=== PATIENT | male | born 1980 | race African-American/Black ===

== ENCOUNTER 2016-10-17 20:57 | Emergency (ER) | payer OTHER ==
[~2016-10-17] VITALS: Ht 172.7 cm; Wt 118.8 kg
[~2016-10-17 20:57] MED LIST: CANA1TAB PO; DICY20TA3 PO; LISI-334 PO; Metoprolol Tartrate PO; ONDA4TAB10 PO; PROM50SU6 RC
[2016-10-17] MEDS ORDERED: ONDANSETRON ODT 4 MG TAB.RAPDIS ONE (21:22)
--- NOTE | 2016-10-17 21:36 | PHYS DOC ---
General Chief Complaint: ABDOMINAL PAIN Stated Complaint: ABDOMINAL PAIN X 2 DAYS,N/V,BLOOD SUGAR Time Seen by MD: 21:31 Source: patient Problems: History of Present Illness Initial Comments Patient with abdominal pain and vomiting. Patient says it started 3 days ago. It was intermittent but now more constant. He did see his own doctor for this yesterday. He doesn't know what he was told but did get new prescriptions filled. He doesn't know what prescriptions these were. He says his pain and vomiting discontinued. He says he had pain like this previously before with episodes of diabetes as well as pancreatitis. He says he is felt hot and cold but has had no fever or chills. There is no runny nose or sore throat. There is no chest pain or shortness of breath. He does have significant nausea vomiting, multiple times today. He's had 3 episodes this evening he thought he might of seeing some spots of blood. He has abdominal pain which is severe and located from the suprapubic area up towards the epigastric region. There is no back pain. There is no change in bowel or bladder habits. He's had some slight constipation but is having small bowel movements daily. Patient states his feet felt cold lately but there is no other acute focal extremity or neurologic complaints. Other than using medication at home he is given by his doctor, of which she doesn't know the name, there's been nothing done for this at home and he notes no factors that increase or decrease his symptoms. Patient's past medical history is remarkable for diabetes and pancreatitis. He does check her sugar regularly at home. It was in the 100s today. He smokes a half-pack of cigarettes daily. He states his occasional user of ethanol, 2 beers every other day or so. He does admit copious marijuana use which she says he uses for chronic pain. Allergies: Coded Allergies: No Known Drug Allergies (Unverified , 06/08/15) Past Medical History Medical History: diabetes, pancreatitis, other Surgical History: no surgical history Family History Significant Family History: no pertinent family hx Social History Smoker: less than 1 pack/day Alcohol: occasionally Drugs: marijuana Review of Systems All Other Systems: Reviewed and Negative Physical Exam General Appearance: WD/WN, moderate distress Ear, Nose, Throat: normal ENT inspection Neck: full range of motion, supple, normal inspection Respiratory: lungs clear, normal breath sounds, no respiratory distress Cardiovascular: regular rate, rhythm, no edema Gastrointestinal: soft, no organomegaly, tenderness Back: no vertebral tenderness Extremities: non-tender, normal inspection, no pedal edema Neurologic/Psychiatric: alert, normal mood/affect, oriented x 3 Skin: normal color Lymphatic: no adenopathy Comments Generally this a well-developed well-nourished white male who does look to be in mild to moderate discomfort with active vomiting and pain. Vitals are as noted. Pertinent signs on physical exam shows ears and throat to be clear. Neck is supple without adenopathy or JVD. Chest is clear and cardiovascular exam is unremarkable. The abdomen is soft. He is diffusely moderately tender throughout. There is no masses or organomegaly or peritoneal findings. No localizing findings. Back shows no CVA tenderness. Externally show noticeable rashes cyanosis or edema. Patient is with active, awake, and alert. He is oriented and cooperative. He is diaphoretic. Remainder of physical exam is clinically unremarkable. Orders, Labs, Meds Old charts note prior ER visits for chest wall pain, dental pain with nausea and vomiting, dental pain, right eye injury, gastroenteritis. He was admitted twice in 2013 for pancreatitis with alcohol abuse. EKG shows sinus at 110. Normal axis. No acute ST or T-wave changes. Labs show a stable white count. Amylase and lipase are within normal limits. Creatinine is mildly elevated at 1.7. He is acetone positive. CT scan of the abdomen and pelvis shows mild inflammation consistent with acute pancreatitis as well as fatty infiltration of liver. There is no other acute changes per radiology. 2400 Patient resting comfortably in the ED. He says he feels much better at this time. He is able tolerate by mouth fluids without difficulty, and he certainly looks much more comfortable as well. I discussed with the patient most likely diagnosis mild pancreatitis. I think he was somewhat dehydrated and ketotic as well. Fortunately his blood sugar looks good and his potassium and electrolytes are stable. I discussed with him management options at this time. I indicated he felt well enough, we could try to handle this home and is able tolerate by mouth fluids. We've given him some antiemetics and appropriate pain medication. Alternately, if he felt unwell, we could certainly admit him to the hospital for further evaluation and care including pain medicines, antiemetics, and IV fluids. Patient says he is feeling much better and wants to try to handle this home. He is able tolerate by mouth fluids, looks improved, and I think this is a reasonable decision on his part. Go ahead and write prescriptions for Zofran and Lortab accordingly. We discussed home care including rest, increasing fluids, and use of medications as directed. He voices understanding of the need to follow-up with primary care or return to the ER immediately as needed if worsen anyway, especially for persistent vomiting, at which point we can admit him for IV fluids to prevent dehydration. He says he has a ride home with his brother. He looks much improved, in no acute discomfort distress, able tolerate by mouth fluids, and okay for discharge home at this time. RAJAT FELIX MD Oct 17, 2016 21:36
[2016-10-17] MEDS ORDERED: PROMETHAZINE 12.5 MG in IV NORMAL SALINE 50ML 50 ML IV PRN (21:45)
[2016-10-17 21:50] LABS: BASO # 0.1 x10^3/uL (0.0-0.2); BASO % 1 % (0-3); EOS # 0.3 x10^3/uL (0.0-0.7); EOS % 2 % (0-3); HEMATOCRIT 51.7 % (39.0-53.0); HEMOGLOBIN 17.4 g/dL (13.0-17.5); LYMPH # 2.2 x10^3/uL (1.0-4.8); LYMPH % 20 % (24-48); MEAN CORPUSCULAR HEMOGLOBIN 29 pg (25-35); MEAN CORPUSCULAR HGB CONC 34 g/dL (31-37); MEAN CORPUSCULAR VOLUME 87 fL (79-100); MONO % 9 % (0-9); NEUT # 7.8 x10^3uL (1.8-7.7); NEUT % 68 % (31-73); PLATELET COUNT 262 x10^3/uL (140-400); RED BLOOD COUNT 5.96 x10^6/uL (4.30-5.70); RED CELL DISTRIBUTION WIDTH 14.8 % (11.5-14.5); WHITE BLOOD COUNT 11.5 x10^3/uL (4.0-11.0)
[2016-10-17 21:57] LABS: ALBUMIN 3.7 g/dL (3.4-5.0); ALBUMIN/GLOBULIN RATIO 0.7 (1.0-1.7); CALCIUM 9.6 mg/dL (8.5-10.1); CREATININE 1.7 mg/dL (0.7-1.3); GFR 55.5; POTASSIUM 4.3 mmol/L (3.5-5.1); TOTAL BILIRUBIN 0.6 mg/dL (0.2-1.0); TOTAL PROTEIN 8.7 g/dL (6.4-8.2)
[2016-10-17] MEDS ORDERED: FENTANYL PF 100 MCG/2 ML VIAL. IV ONE (22:00)
[2016-10-17] MEDS ORDERED: IV NORMAL SALINE 1,000ML 1,000 ML IV ONE (22:00)
[2016-10-17] MEDS ORDERED: ONDANSETRON ODT 4 MG TAB.RAPDIS PO ONE (22:15)
--- NOTE | 2016-10-17 22:20 | RAD ---
PROCEDURE CT abdomen pelvis without contrast. HISTORY Vomiting, abdominal pain x3 days. History of pancreatitis. TECHNIQUE Helical CT imaging of the abdomen and pelvis is performed without IV or oral contrast. PQRS: One or more the following individualized dose reduction techniques were utilized for the study: 1. Automated exposure control. 2. Adjustment of the mA and/or kV according to patient size. 3. Use of iterative reconstruction technique. COMPARISON CT abdomen pelvis with contrast June 25, 2016. FINDINGS Evaluation of solid organs and bowel is limited without oral and IV contrast, decreasing sensitivity for detection of pathology. Due to respiratory motion artifact, portion of the CT scan is repeated. No obvious opacity of the lungs. Cardiac size normal. There is fatty infiltration of the liver. Small cyst along the gallbladder fossa, stable. Gallbladder, spleen, adrenal glands, kidneys, and abdominal aorta are normal. Pancreas body and tail are normal. There is mild induration adjacent to the pancreas head, for example image 19 and image 15 of series 3. No evidence of pancreas pseudocyst or necrosis. Stomach unremarkable. Small fat containing umbilical hernia. No dilated small bowel. The appendix is normal. No colon wall thickening. Urinary bladder is normal. Prostate size normal. No pelvic free fluid. No acute bone abnormality. IMPRESSION 1. Mild inflammation near the pancreas head compatible with acute pancreatitis. Suggest correlation with lipase. 2. Fatty infiltration of the liver. Electronically signed by: Andrzej Gutierrez MD (Oct 17, 2016 22:18:35)
--- NOTE | 2016-10-17 22:29 | EKG ---
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
[2016-10-18 00:09] VITALS: BP 140/87
[2016-10-18 00:13] LABS: BILIRUBIN,URINE NEG (NEG); CLARITY,URINE CLEAR; COLOR,URINE YELLOW; GLUCOSE,URINE 500 mg/dL (NEG); NITRITE,URINE NEG (NEG); RBC,URINE 0 /HPF (0-2); UROBILINOGEN,URINE 0.2 mg/dL (0.2 mg/dL)
[2016-10-18 00:14] LABS: BACTERIA,URINE 0 /HPF (0-FEW); SQUAMOUS EPITHELIAL CELL,UR FEW /LPF; WBC,URINE OCC /HPF (0-4)
== END 2016-10-18 00:12 | disposition home or self-care (01) ==
LOC: ER 20:57
DX: R10.13 Epigastric pain (principal); R11.2 Nausea with vomiting, unspecified; E11.9 Type 2 diabetes mellitus without complications; F17.210 Nicotine dependence, cigarettes, uncomplicated; F12.10 Cannabis abuse, uncomplicated
CPT/HCPCS: 36415; 74176; 80053; 81001; 82010; 82140; 82150; 82947; 83605; 83690; 85027; 93005; 96365; 96366; 96375; 99285; J2550; J3010; Q0162; J7030

== ENCOUNTER 2016-10-18 04:23 | Observation (INO) | payer OTHER ==
[~2016-10-18] VITALS: Ht 170.2 cm; Wt 108.0 kg
--- NOTE | 2016-10-18 04:41 | PHYS DOC ---
General Chief Complaint: NAUSEA/VOMITING/DIARRHEA Stated Complaint: VOMITING,ABDOMINAL PAIN Time Seen by MD: 04:34 Source: patient Problems: History of Present Illness Initial Comments Patient here for his second visit samia for abdominal pain nausea vomiting. Patient was seen earlier this evening by this physician diagnosed with acute pancreatitis. He does have a history of pancreatitis as well as diabetes. Actually did much better in the ER following pain medicine and antiemetics. He was able tolerate by mouth fluids, said he felt better, wanted to try to handle this home. He was discharged home with prescriptions for Lortab and for Zofran. However, he said that he went to sleep, and several hours later woke up with recurrent abdominal pain and vomiting, and presented again back to the emergency department for care. Patient states since his workup is and had recurrence of his diffuse abdominal pain. He's had 2 episodes of emesis with questionable blood flecks in one of the episodes. He's felt hot and cold with some chills and sweats. There is no runny nose or sore throat. There's no chest pain or shortness of breath. He has abdominal pain nausea vomiting as described. There is no change amount or bladder habits. There is no focal extremity or neurologic complaints. Other than present for care previous to leave this evening there's been nothing done for this at home and no fractures noted increase or decrease any symptoms he might have. Patient's past medical history is remarkable for diabetes. He is on metformin. He also has problems with anxiety depression and takes Zoloft. He has a history of pancreatitis as well. He smokes a half-pack per per day of cigarettes. He's been occasional social user of ethanol. Allergies: Coded Allergies: No Known Drug Allergies (Unverified , 06/08/15) Past Medical History Medical History: diabetes, pancreatitis, other Surgical History: no surgical history Family History Significant Family History: no pertinent family hx Social History Smoker: less than 1 pack/day Alcohol: occasionally Review of Systems All Other Systems: Reviewed and Negative Physical Exam General Appearance: WD/WN, mild distress Neck: full range of motion, supple, normal inspection Respiratory: lungs clear, normal breath sounds, no respiratory distress Cardiovascular: regular rate, rhythm, no edema Gastrointestinal: soft, tenderness Back: no CVA tenderness, no vertebral tenderness Extremities: non-tender, normal inspection, no pedal edema Neurologic/Psychiatric: alert, normal mood/affect, oriented x 3 Skin: normal color Lymphatic: no adenopathy Comments Generally this is a well-developed well-nourished black male who looks mildly uncomfortable, but not as severe as when previously seen this evening. Vitals are as noted. He has a small amount of emesis in the pale. Pertinent findings on physical exam shows the chest to be clear. Cardiovascular exam shows regular rate and rhythm without murmur. The abdomen is soft. He is diffusely tender. There is no masses, organomegaly, or peritoneal findings, or focal findings. Back shows no CVA tenderness. Extremities show no rashes cyanosis or edema. He is mildly diaphoretic. He is awake alert oriented and cooperative with exam. Remainder of physical exam is clinically unremarkable. Orders, Labs, Meds Old charts note that the patient was seen here earlier tonight as previously described, with care rendered by this physician as noted. He's also been seen in the past for gastroenteritis, with hospital admissions in the past for pancreatitis and alcohol use. EKG from earlier today showed no acute changes. Labs from earlier today show mildly elevated creatinine 1.7. He was acetone positive. Glucose was stable. Amylase and lipase were unremarkable. CT scan of the abdomen and pelvis from earlier showed evidence of mild acute pancreatitis per radiology. Patient was identified on arrival is required admission for intractable nausea vomiting. He is already had a complete workup earlier this evening. He apparently has failed outpatient treatment and the second presentation tonight will require admission. I discussed the case with Dr. Worthy of the hospitalist service who graciously agrees to accept the patient for admission. Patient is agreeable to admission as well. I will complete initial holding orders including use of antiemetics, pain medicine, an IV fluids. We will treat him here as well as some medicine for pain as well as Phenergan for nausea and vomiting. He is currently awaiting transfer to floor and hospitalist care. RAJAT FELIX MD Oct 18, 2016 04:40
[2016-10-18] MEDS ORDERED: PROMETHAZINE 12.5 MG in IV NORMAL SALINE 50ML 50 ML IV PRN ×2 (04:45→08:00)
[2016-10-18] MEDS ORDERED: PROMETHAZINE 25 MG/ML VIAL IV ONE (04:52)
[2016-10-18] MEDS ORDERED: IV NORMAL SALINE 50ML 50 ML ONE (04:52)
[2016-10-18] MEDS ORDERED: FENTANYL PF 100 MCG/2 ML VIAL. IV ONE (05:00)
[2016-10-18] MEDS ORDERED: IV NORMAL SALINE 1,000ML 1,000 ML IV ONE (05:00)
[2016-10-18 06:14] VITALS: BP 119/82
[2016-10-18 06:17] VITALS: BP 119/82
[2016-10-18] MEDS ORDERED: IV NORMAL SALINE 1,000ML 1,000 ML IV SCH (07:45)
[2016-10-18] MEDS ORDERED: ONDANSETRON PF 4 MG/2 ML VIAL. IV PRN (07:45)
[2016-10-18] MEDS ORDERED: FENTANYL PF 100 MCG/2 ML VIAL. IV PRN (08:15)
[2016-10-18 08:49] LABS: ALBUMIN 3.2 g/dL (3.4-5.0); ALBUMIN/GLOBULIN RATIO 0.7 (1.0-1.7); CALCIUM 8.3 mg/dL (8.5-10.1); CREATININE 1.3 mg/dL (0.7-1.3); GFR 75.6; POTASSIUM 4.3 mmol/L (3.5-5.1); TOTAL BILIRUBIN 0.5 mg/dL (0.2-1.0); TOTAL PROTEIN 7.6 g/dL (6.4-8.2)
[2016-10-18 10:47] VITALS: BP 137/91
[2016-10-18] MEDS ORDERED: ONDANSETRON ODT 4 MG TAB.RAPDIS PO PRN (12:45)
[2016-10-18] MEDS ORDERED: PROMETHAZINE 25 MG SUPP.RECT. PR PRN (13:00)
[2016-10-18] MEDS ORDERED: DICYCLOMINE HCL 20 MG TABLET PO SCH (13:00)
--- NOTE | 2016-10-18 13:36 | SSS ---
ADMIT DATE: 10/18/2016 HISTORY OF PRESENT ILLNESS: The patient is a 36-year-old -[place] male patient, who apparently was evaluated yesterday in the Emergency Room for abdominal pain as well as vomiting that has been just started about 3 days ago, intermittent, but now more constant. He did see his own doctor the day before yesterday. As his pain and vomiting just continued, he came to the Emergency Room and apparently was admitted before with diabetes and pancreatitis and was evaluated in the Emergency Room and apparently a decision was made initially to discharge him home, was given a prescription for pain medication. Currently, the patient came back again complaining of nausea and vomiting and therefore he was admitted, kept n.p.o., started on IV fluid to follow his labs. While in the Emergency Room his lab work showed that his white cell count slightly high. He is dehydrated with hemoglobin 17, hematocrit 51, platelet count 262,000. His chemistry showed that he was also slightly hyponatremic and dehydrated with a creatinine of 1.7, although his serum amylase and lipase were both normal. PAST MEDICAL HISTORY: Significant for hypertension, type 2 diabetes and history of pancreatitis. PAST SURGICAL HISTORY: Unremarkable. ALLERGIES: He has known drug allergies. MEDICATIONS: He is currently on following medications: He is on Invokana 50/500 one tablet daily. He is on dicyclomine 20 mg once a day, lisinopril 20 mg once a day, ondansetron 4 mg every 6 hours as needed and promethazine for Phenergan 50 mg every 6 hours. FAMILY HISTORY: He has one brother, who is known to have diabetes. His mother is alive at the age of 54 and is known to have diabetes and hypertension. He does not know his biological father. SOCIAL HISTORY: He is , has 4 children, 2 sons and 2 daughters. He smokes 4 or 5 cigarettes per day. He drinks 2 to 3 cans of beer twice a week. He smokes marijuana and in fact . He is currently student and goes to school. REVIEW OF SYSTEMS: As per history of present illness. PHYSICAL EXAMINATION GENERAL: When I examined him, he looked well and was clearly in no apparent respiratory distress, pale, but no jaundice, cyanosis, or thyromegaly. No jugular venous distention. No limb edema. VITAL SIGNS: His heart rate was 100, blood pressure was 137/91, temperature was 97.7, respiratory rate 20, and oxygen saturation was 98%. HEAD, EYES, EARS, NOSE AND THROAT: Showed normocephalic, atraumatic. NECK: Supple. HEART: Showed normal first and second heart sounds. No gallop, rub or murmur. CHEST: Clear to auscultation. No crepitation or rhonchi. ABDOMEN: Distended, soft, nontender. No guarding or rigidity. No organomegaly. All hernial orifices intact. Bowel sounds normal. NEUROLOGIC: He is awake, alert, responding appropriately. His cranial nerves intact. He moves extremities without difficulty. LABORATORY DATA: His lab work this morning showed that the serum sodium was 131, potassium 4.3, chloride 99, bicarbonate 16, anion gap of 16, BUN of 16, creatinine 1.3, estimated GFR was 75 mL per minute. His glucose was 172, calcium was 8.3. Total bilirubin, AST, ALT, alkaline phosphatase were normal. His ammonia was only 16. Lactic acid was 1.7. Total protein was 7.6, albumin was 3.2. Amylase and lipase were normal. His white cell count was 11,500, hemoglobin 17, hematocrit 51, MCV 87 and platelet count 262,000. ASSESSMENT AND PLAN: The patient has had no further episodes of nausea, vomiting. He is tolerating his diet and expressed desire to go home. He was discharged back to continue on all his medications including Invokana 50/500 one tablet once a day, dicyclomine 20 mg once a day, lisinopril 20 mg once a day, ondansetron 4 mg every 6 hours and promethazine 50 mg every 6 hours. FINAL DISCHARGE DIAGNOSES: 1.Intractable nausea and vomiting, resolved. 2.Chronic pancreatitis, stable. 3.Type 2 diabetes. 4.Hypertension. BROOKE SAHU MD DR: PERLA/familia JOB#: [id number] / [id number]
[2016-10-19] MEDS ORDERED: METFORMIN HCL PO SCH (09:00)
[2016-10-19] MEDS ORDERED: LISINOPRIL 20 MG TABLET PO SCH (09:00)
[2016-10-19] MEDS ORDERED: CANAGLIFLOZIN PO SCH (09:00)
== END 2016-10-18 13:12 | disposition home or self-care (01) ==
LOC: ER 04:23 → 1 SOUTH 04:40 → UNDOADMOB 04:40 → INTOOBSV 04:40 → UNDOADMIN 04:40 → ICU 04:40 → UNDODISOB 13:12
PROVIDERS: ADMIT Internal Medicine; ATTEND Internal Medicine
DX: K86.1 Other chronic pancreatitis (principal); E11.9 Type 2 diabetes mellitus without complications; I10 Essential (primary) hypertension; F41.9 Anxiety disorder, unspecified; F32.9 Major depressive disorder, single episode, unspecified; F12.90 Cannabis use, unspecified, uncomplicated; F17.210 Nicotine dependence, cigarettes, uncomplicated; Z79.899 Other long term (current) drug therapy; Z83.3 Family history of diabetes mellitus; Z82.49 Family history of ischemic heart disease and other diseases of the circulatory system
CPT/HCPCS: 36415; 80053; 82150; 82947; 83690; 87641; 96361; 96365; 96375; 99285; G0378; J2550; J3010; J7030; G0379

== ENCOUNTER 2016-11-16 08:07 | Inpatient (IN) | payer OTHER ==
[~2016-11-16] VITALS: Ht 170.2 cm; Wt 103.5 kg
[2016-11-16] VITALS (12 sets, daily range): BP systolic 106–154; BP diastolic 61–88
[2016-11-16] MEDS ORDERED: MVI, ADULT NO.4 WITH VIT K 10 ML VIAL IV ONE (08:37)
[2016-11-16] MEDS ORDERED: IV NORMAL SALINE 50ML 50 ML ONE ×2 (08:37→19:51)
[2016-11-16] MEDS ORDERED: FOLIC ACID 5 MG/ML SYRINGE for ER IV ONE (08:37)
[2016-11-16] MEDS ORDERED: IV RINGERS SOLUTION,LACTATED 0 ML IV ONE (08:37)
[2016-11-16] MEDS ORDERED: THIAMINE 200 MG/2 ML VIAL. IV ONE (08:37)
[2016-11-16] MEDS ORDERED: PROMETHAZINE 25 MG/ML VIAL IV ONE ×2 (08:37→19:51)
[2016-11-16 08:38] LABS: BASO # 0.3 x10^3/uL (0.0-0.2); BASO % 2 % (0-3); EOS # 0.2 x10^3/uL (0.0-0.7); EOS % 1 % (0-3); HEMATOCRIT 48.3 % (39.0-53.0); LYMPH # 3.2 x10^3/uL (1.0-4.8); LYMPH % 20 % (24-48); MEAN CORPUSCULAR VOLUME 87 fL (79-100); MONO # 0.9 x10^3/uL (0.0-1.1); MONO % 6 % (0-9); NEUT # 11.2 x10^3uL (1.8-7.7); NEUT % 71 % (31-73); PLATELET COUNT 261 x10^3/uL (140-400); RED BLOOD COUNT 5.57 x10^6/uL (4.30-5.70); WHITE BLOOD COUNT 15.8 x10^3/uL (4.0-11.0)
[2016-11-16] MEDS ORDERED: ONDANSETRON PF 4 MG/2 ML VIAL. IV ONE (08:45)
[2016-11-16] MEDS ORDERED: FAMOTIDINE 20 MG/2 ML VIAL IVP ONE (08:45)
[2016-11-16] MEDS ORDERED: MVI, ADULT NO.4 WITH VIT K 10 ML, FOLIC ACID SYRINGE for ER 1 MG, THIAMINE 100 MG in IV... IV ONE ×4 (08:45)
[2016-11-16] MEDS: fentaNYL PF 100 MCG/2 ML VIAL IV PRN ×2 (08:49→13:10)
[2016-11-16] MEDS: PROMETHAZINE IV PRN ×3 (08:49→19:54)
[2016-11-16] MEDS: NORMAL SALINE IV PRN ×3 (08:49→19:54)
[2016-11-16 08:57] LABS: AMPHETAMINE/METHAMPHETAMINE NEG (NEG); BARBITURATES NEG (NEG); BENZODIAZEPINES NEG (NEG); CANNABINOIDS POS (NEG); COCAINE NEG (NEG); METHADONE NEG (NEG); OPIATES POS (NEG); PHENCYCLIDINE NEG (NEG)
[2016-11-16 09:05] LABS: HEMOGLOBIN 16.3 g/dL (13.0-17.5); MEAN CORPUSCULAR HEMOGLOBIN 29 pg (25-35); MEAN CORPUSCULAR HGB CONC 34 g/dL (31-37); TOTAL BILIRUBIN 0.8 mg/dL (0.2-1.0)
[2016-11-16 09:10] LABS: BILIRUBIN,URINE NEG (NEG); CLARITY,URINE CLEAR; COLOR,URINE YELLOW; GLUCOSE,URINE 500 mg/dL (NEG)
[2016-11-16 09:11] LABS: BACTERIA,URINE 0 /HPF (0-FEW); NITRITE,URINE NEG (NEG); RBC,URINE 0 /HPF (0-2); SQUAMOUS EPITHELIAL CELL,UR OCC /LPF; UROBILINOGEN,URINE 0.2 mg/dL (0.2 mg/dL); WBC,URINE 0 /HPF (0-4)
--- NOTE | 2016-11-16 09:31 | EKG ---
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
[2016-11-16 09:41] LABS: ALBUMIN 3.7 g/dL (3.4-5.0); ALBUMIN/GLOBULIN RATIO 0.9 (1.0-1.7); ALK PHOS 111 U/L (46-116); ANION GAP 20 (6-14); BLOOD UREA NITROGEN 20 mg/dL (8-26); BUN/CREATININE RATIO 14 (6-20); CALCIUM 8.8 mg/dL (8.5-10.1); CARBON DIOXIDE 19 mmol/L (21-32); CHLORIDE 92 mmol/L (98-107); CREATINE KINASE 209 U/L (39-308); CREATININE 1.4 mg/dL (0.7-1.3); GFR 69.4; GLUCOSE 330 mg/dL (70-99); POTASSIUM 4.6 mmol/L (3.5-5.1); SODIUM 131 mmol/L (136-145); TOTAL PROTEIN 7.7 g/dL (6.4-8.2)
[2016-11-16 09:42] LABS: ALT (SGPT) 22 U/L (16-63)
--- NOTE | 2016-11-16 09:43 | RAD ---
Examination: CT of the abdomen pelvis without contrast History: History of abdominal pain for 2 days Comparison: 10/17/2016 Technique: Axial CT images of the abdomen pelvis were performed without contrast. Coronal and sagittal reformats were performed. PQRS Compliance Statement: One or more of the following individualized dose reduction techniques were utilized for this examination: 1. Automated exposure control 2. Adjustment of the mA and/or kV according to patient size 3. Use of iterative reconstruction technique Findings: Minimal bibasal lung atelectasis identified. No evidence of free air identified. There is diffuse decreased attenuation noted throughout the liver likely hepatic steatosis. The gallbladder is mildly distended. The visualized spleen, adrenals grossly appears unremarkable. The stomach is mildly distended. There is questionable minimal fat stranding identified about the pancreas in the region of the pancreatic head. No evidence of intrarenal collecting system calculi or hydronephrosis. The small bowel is nondilated. The appendix is normal. Feces and gas noted in the colon. Urinary bladder is mildly distended. The caliber of the aorta grossly appears unremarkable. The urinary bladder is mildly distended. No evidence of lytic bony destructive lesion identified. Impression: 1. Minimal fat stranding identified about the head of the pancreas, nonspecific, mild pancreatitis is a possibility. Correlate with lab values. 2. Hepatic steatosis.
[2016-11-16 09:55] LABS: % EOS 1 % (0-5); % MONOS 10 % (0-10)
[2016-11-16 09:56] LABS: % LYMPHS 23 % (24-48); % SEGS 66 % (35-66); PLT ESTIMATE ADEQUATE (ADEQUATE)
[2016-11-16 10:00] LABS: LIPASE 3030 U/L (73-393)
[2016-11-16] MEDS ORDERED: INSULIN REGULAR 100 UNIT/ML 10ML VIAL. IV ONE (10:15)
[2016-11-16] MEDS ORDERED: IV NORMAL SALINE 1,000ML 1,000 ML IV SCH ×2 (11:18→14:30)
[2016-11-16] MEDS ORDERED: VANCOMYCIN PER PHARMACY MC PRN (11:30)
[2016-11-16] MEDS ORDERED: ONDANSETRON PF 4 MG/2 ML VIAL. IV PRN (11:30)
[2016-11-16] MEDS ORDERED: MORPHINE SULFATE 2 MG/ML DISP.SYRIN. IV PRN (11:30)
[2016-11-16] MEDS ORDERED: ACETAMINOPHEN 325 MG TABLET PO PRN (11:30)
[2016-11-16] MEDS ORDERED: VANCOMYCIN 2 GM in IV NORMAL SALINE 500ML 500 ML IV ONE (12:00)
--- NOTE | 2016-11-16 13:07 | EKG ---
[address] [address] Test Date: 2016-11-16 Test Time: 10:04:15 Pat Name: GURMEET LEROY Department: Room: 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
--- NOTE | 2016-11-16 13:20 | NUR ---
Admit to room icu bed 5 via cart accompanied by staff. Alert and oriented x 3, c/o of severe abd pain rate a 9,vs stable. Pt teary eyed, stating he really hurts.Saline lock to rac, patent. Assesment complete with hypoactive bowel sounds. Oriented to room and explained all procedures
--- NOTE | 2016-11-16 13:33 | PHYS DOC ---
General Chief Complaint: ABDOMINAL PAIN Stated Complaint: PANCREATITIS PERICARDITIS DM UNCONTROLLED Time Seen by MD: 08:12 Source: patient, old records Exam Limitations: no limitations Problems: History of Present Illness Initial Comments Pt is 36/M to ED c/o abdominal pain with n/v. Pt has h/o pancreatitis, states he has recurrance. "I drank two beers" last night, 0200 developed epigastric/LUQ pain with n/v. Pt states he's had PO intolerance with n/v/retching since 0200. Actively dry heaving on ED arrival, epigastric sharp/crampy moderate/severe worse with food better with meds/rest. No blood in emesis, no bowel/bladder symptoms. No fever/chills/ROBERTS/myalgia/ focal neurodeficit/cp/sob/palpitations. No prior cardiac history. afeb, 83, 130/82, 98% RA Timing/Duration: 4-6 hours Severity: severe Modifying Factors: worse with eating, improves with medication, worse with movement, improves with rest Associated Symptoms: nausea/vomiting, other Allergies: Coded Allergies: No Known Drug Allergies (Unverified , 06/08/15) Past Medical History Medical History: diabetes, pancreatitis, other (pancreatitis, DM, depression, anxiety, liver disease) Surgical History: no surgical history, noncontributory Family History Significant Family History: no pertinent family hx Social History Smoker: less than 1 pack/day Alcohol: occasionally Drugs: marijuana Review of Systems Constitutional: denies chills, denies diaphoresis, denies fever, malaise Respiratory: denies cough, denies shortness of breath, denies wheezing Cardiovascular: denies chest pain, denies palpitations, denies syncope Gastrointestinal: abdominal pain, denies constipation, denies diarrhea, nausea , vomiting Genitourinary: denies dysuria, denies frequency, denies hematuria Musculoskeletal: denies back pain, denies joint swelling, denies neck pain Psychiatric/Neurological: denies headache, denies numbness, denies paresthesia Physical Exam General Appearance: WD/WN, moderate distress (retching) Eyes: bilateral eye normal inspection, bilateral eye PERRL, bilateral eye EOMI Ear, Nose, Throat: hearing grossly normal, normal ENT inspection, normal pharynx Neck: full range of motion, supple Respiratory: normal breath sounds, no respiratory distress Cardiovascular: normal peripheral pulses, regular rate, rhythm (distant cardiac sounds no discrete murmur/rub auscultated), no edema Gastrointestinal: soft (nondistended, BS hyperactive, generalized TTP no r/g/ mass, no skin changes abd/flank) Rectal: deferred Back: no CVA tenderness, no vertebral tenderness Extremities: non-tender, normal inspection Neurologic/Psychiatric: ios developer II-XII nml as tested, no motor/sensory deficits, alert, oriented x 3, other (anxious/agitated, cooperative) Skin: normal color, warm/dry Orders, Labs, Meds EKG: NSR diffuse T elevation no recip changes, changed from 10/17 study, c/w pericarditis. PATIENT: GURMEET LEROY ACCOUNT: [id number] : 1980 LOCATION: ER AGE: 36 SEX: M EXAM STATUS: REG ER ORD. PHYSICIAN: MARGO PEREZ DO REASON: abd pain, n/v, h/o pancreatitis PROCEDURE: CT ABDOMEN PELVIS WO CONTRAST Examination: CT of the abdomen pelvis without contrast History: History of abdominal pain for 2 days Comparison: 10/17/2016 Technique: Axial CT images of the abdomen pelvis were performed without contrast. Coronal and sagittal reformats were performed. PQRS Compliance Statement: One or more of the following individualized dose reduction techniques were utilized for this examination: 1. Automated exposure control 2. Adjustment of the mA and/or kV according to patient size 3. Use of iterative reconstruction technique Findings: Minimal bibasal lung atelectasis identified. No evidence of free air identified. There is diffuse decreased attenuation noted throughout the liver likely hepatic steatosis. The gallbladder is mildly distended. The visualized spleen, adrenals grossly appears unremarkable. The stomach is mildly distended. There is questionable minimal fat stranding identified about the pancreas in the region of the pancreatic head. No evidence of intrarenal collecting system calculi or hydronephrosis. The small bowel is nondilated. The appendix is normal. Feces and gas noted in the colon. Urinary bladder is mildly distended. The caliber of the aorta grossly appears unremarkable. The urinary bladder is mildly distended. No evidence of lytic bony destructive lesion identified. Impression: 1. Minimal fat stranding identified about the head of the pancreas, nonspecific, mild pancreatitis is a possibility. Correlate with lab values. 2. Hepatic steatosis. DICTATED AND SIGNED BY: EDOUARD VILCHIS MD DATE: 11/16/16 0936 CC: YASMINE CAIN; MARGO PEREZ DO ~ Chest AP: ordered WBC 15.8, Na 131, BUN 20, Cr 1.4, lactic acid unable to result due to gross lipemia, lipase 3030, UDS +cannabinoids and opiates, UA 500glu, 80ket 0835: I discussed EKG and reviewed it with Dr Arellano who suspects pericarditis. Requests admit [facility], follow CE, repeat EKG, echocardiogram. Pt discussed with Dr Zaragoza who accepts pt for admission. In addition to above, IV fluids/bowel rest follow lipase. IMPRESSIONS: Alcoholic Pancreatitis Pericarditis DM Uncontrolled Renal Insufficiency Gross Lipemia Marijuana abuse Tobaccoism Departure Disposition: ADMITTED INPATIENT Diagnosis: pancreatitis, pericarditis, DM uncontrolled, renal Condition: STABLE MARGO PEREZ DO November 16, 2016 13:33
--- NOTE | 2016-11-16 13:53 | ACF ---
Admission Criteria Forms PANCREATITIS Clinical Indications for Admission to Inpatient Care (Place 'X' for any and all applicable criteria): Admission is indicated for 1 or more of the following (1)(2)(3)(4): [X]I. Acute pancreatitis[A] as indicated by 2 or MORE of the following: [X]a) Abdominal pain (eg, epigastric, left upper quadrant) [X]b) Serum amylase or serum lipase greater than 3 times the upper limit of normal [ ]c) Characteristic findings from abdominal imaging (eg, pancreatic inflammation, pancreatic necrosis, peripancreatic fluid collection)[B] [ ]II. Pancreatitis (acute or chronic ) requiring inpatient care as indicated by 1 or more of the following [ ]a) Inability to maintain oral hydration Hypoxemia [ ]b) Evidence of infection (eg, fever, peripancreatic abscess) [ ]c) Severe pain requiring acute inpatient management [ ]d) Hemodynamic instability [ ]e) Hypoxemia [ ]f) Acute renal failure [ ]g) Severe electrolyte abnormalities Extended stay beyond goal length of stay may be needed for (1)(11) [ ]a) Severe acute pancreatitis (10)(19) [ ]b) Persistent symptoms, ascites, or pleural effusion [ ]c) Abdominal compartment syndrome (10) [ ]d) Late complications [ ]e) Gallstones in gallbladder [ ]f) Acute renal failure (27) The original [facility] content created by [employer] has been revised. The portions of the content which have been revised are identified through the use of italic text or in bold,and [facility] [employer] has neither reviewed nor approved the modified material.All other unmodified content is copyright [facility] [employer]. Please see references footnoted in the original [facility] edition 2016 Admission Criteria Met?: Yes EMELINA PRICE November 16, 2016 13:52
[2016-11-16] MEDS ORDERED: NALOXONE 0.4 MG/ML VIAL. IV PRN (14:00)
[2016-11-16] MEDS ORDERED: DEXTROSE 50% 25 GM / 50ML DISP.SYRIN. IV PRN (14:15)
--- NOTE | 2016-11-16 14:39 | PDOC1 ---
History of Present Illness Chief Complaint: ABDOMINAL PAIN Allergies: Coded Allergies: No Known Drug Allergies (Unverified , 06/08/15) Past Medical History Cardiac: HTN GI: Other (Pancreatitis) Endocrine: Diabetes (Type 2, non-insulin dependent) Past Surgical History: No pertinent history Family History: DM (Brother, mother), Hypertension Past Social History Smoke: <1 pack per day Alcohol: occassional (2-3 cans of beer, 1-2 times per week (last ingestion was yesterday, 2 beers)) Drugs: Marijuana (Occasional, used yesterday to try to get rid of pain) Lives: with Family Domestic Violence: Neg Review of Systems Review Of Systems Fourteen system , review of systems has been reviewed. See HPI for pertinent positives and negative responses, other harris all other systems are negative, non pertinent or non contributory Constitutional: No: Fever, Chills, Sweats Eyes: No: Blurry vision, Double vision ENT: No: Ear pain, Nose pain, Nose congestion Respiratory: No: Cough, Shortness of breath, Tachypnea Cardiovascular: No: Chest Pain, Palpitations, Paroxysmal Noc. Dyspnea, Edema Gastrointestinal: YES: Nausea, Vomiting, Abdominal Pain, No: Diarrhea, Constipation, Melena, Hematochezia Genitourinary: No: Dysuria, Henaturia Musculoskeletal: No: Muscle Pain, Muscular Weakness SKIN: YES: Warm, Dry, No Rashes Neurological: No: Confusion, Dizziness, Headaches, Memory Loss, Numbness/ Tingling, Tremors, Weakness Allergies: Coded Allergies: No Known Drug Allergies (Unverified , 06/08/15) Medications Current Medications Fentanyl Citrate (Fentanyl 2ml Vial) 25 mcg PRN Q15MIN PRN IV PAIN GREATER THAN 3/10 Last administered on 11/16/16 13:10; Start 11/16/16 at 08:30; Stop at 08:29 Ondansetron HCl (Zofran) 4 mg 1X ONCE IV Last administered on 11/16/16 08:42 ; Start 11/16/16 at 08:45; Stop 11/16/16 at 08:46; Status DC Famotidine (Pepcid) 20 mg 1X ONCE IVP Last administered on 11/16/16 08:45; Start 11/16/16 at 08:45; Stop 11/16/16 at 08:46; Status DC Multivitamins/ Minerals 10 ml/ Folic Acid 1 mg/ Thiamine HCl 100 mg/Lactated Ringer's 1,011.1 ml @ 1,000 mls/ hr 1X ONCE IV Last administered on 08:45; Start 11/16/16 at 08:45; Stop 11/16/16 at 09:45; Status DC Promethazine HCl 50 mg/Sodium Chloride 52 ml @ 101 mls/hr PRN Q6HRS PRN IV NAUSEA/VOMITING Last administered on 11/16/16 08:49; Start 11/16/16 at 08:45 Promethazine HCl (Phenergan) 25 mg STK-MED ONCE IV ; Start 11/16/16 at 08:37; Stop 11/16/16 at 08:38; Status DC Lactated Ringer's 0 ml @ As Directed STK-MED ONCE IV ; Start 11/16/16 at 08:37; Stop 11/16/16 at 14:12; Status DC Sodium Chloride 50 ml @ As Directed STK-MED ONCE .ROUTE ; Start 11/16/16 at 08: 37; Stop 11/16/16 at 14:08; Status DC Thiamine HCl 200 mg STK-MED ONCE IV ; Start 11/16/16 at 08:37; Stop 11/16/16 at 08:38; Status DC Multivitamins/ Minerals (Infuvite Adult) 10 ml STK-MED ONCE IV ; Start 11/16/16 at 08:37; Stop 11/16/16 at 08:38; Status DC Folic Acid 5 mg STK-MED ONCE IV ; Start 11/16/16 at 08:37; Stop 11/16/16 at 08: 38; Status DC Insulin Human Regular (Novolin R) 6 unit 1X ONCE IV Last administered on 10:15; Start 11/16/16 at 10:15; Stop 11/16/16 at 10:17; Status DC Vancomycin HCl (Vanco Per Pharmacy) 1 each PRN DAILY PRN MC SEE COMMENTS; Start 11/16/16 at 11:30; Stop 11/16/16 at 14:15; Status DC Vancomycin HCl 2 gm/Sodium Chloride 500 ml @ 250 mls/hr 1X ONCE IV Last administered on 11/16/16 13:49; Start 11/16/16 at 12:00; Stop 11/16/16 at 13:59 ; Status DC Ondansetron HCl (Zofran) 4 mg PRN Q4HRS PRN IV NAUSEA/VOMITING; Start 11/16/16 at 11:30; Stop 11/17/16 at 11:29 Morphine Sulfate (Morphine 2mg Syringe) 2 mg PRN Q2HR PRN IV PAIN Last administered on 11/16/16 13:50; Start 11/16/16 at 11:30; Stop 11/17/16 at 11:29 Sodium Chloride 1,000 ml @ 200 mls/hr Q5H IV Last administered on 11/16/16 13 :48; Start 11/16/16 at 11:18; Stop 11/16/16 at 14:08; Status DC Acetaminophen (Tylenol) 650 mg PRN Q4HRS PRN PO FEVER; Start 11/16/16 at 11:30 ; Stop 11/17/16 at 11:29 Fentanyl Citrate 30 ml @ 0 mls/hr CONT PRN PRN IV PROTOCOL; Start 11/16/16 at 14:00 Naloxone HCl (Narcan) 0.4 mg PRN Q2MIN PRN IV SEE INSTRUCTIONS; Start 11/16/16 at 14:00 Vancomycin HCl 1.75 gm/Sodium Chloride 500 ml @ 250 mls/hr Q12H IV ; Start at 02:00; Stop 11/17/16 at 02:00; Status DC Insulin Aspart (Novolog) 0-7 UNITS Q1HR SQ ; Start 11/16/16 at 15:00; Status UNV Dextrose 12.5 gm PRN Q15MIN PRN IV SEE COMMENTS; Start 11/16/16 at 14:15; Status UNV Sodium Chloride 1,000 ml @ 200 mls/hr Q5H IV ; Start 11/16/16 at 14:15; Status UNV Active Scripts Active Dicyclomine Hcl 20 Mg Tablet 1 Tab PO QID Phenergan (Promethazine HCl) 50 Mg Supp.rect 50 Mg RC Q6HRS Zofran Odt (Ondansetron) 4 Mg Tab.rapdis 4 Mg PO Q6HRS PRN Reported Invokamet 50-500 mg Tablet (Canagliflozin/Metformin HCl) 1 Each Tablet 1 Each PO DAILY Lisinopril 20 Mg Tablet 1 Tab PO DAILY Exam Vital Signs Vital Signs Date Time Temp Pulse Resp B/P (MAP) Pulse Ox O2 Delivery O2 Flow Rate FiO2 11/16/16 13:50 22 98 Room Air General Appearance: Alert, Cooperative, moderate distress (Writhing in pain) HEENT: Atraumatic, PERRLA, EOMI, Mucous membr. moist/pink, Other (Neck supple, no JVD, no LAD, no thyromegaly) Respiratory: Clear to auscultation, Normal air movement Heart: Regular rate, Normal S1, Normal S2, No murmurs Abdominal: Other (Diffuse TTP, bowel sounds present, voluntary guarding, no masses, no severe rigidity) Extremities: No edema, No tenderness/swelling Skin: No rashes Neuro: Normal speech, Strength at 5/5 X4 ext, Normal tone, Sensation intact, Reflexes 2+ Psych/Mental Status: Mental status NL, Mood NL Assessment/Plan Assessment/Plan 1. Acute pancreatitis: This is recurrent for pt. Liliya has had some postmarketing reports of pancreatitis, but I suspect it is more likely due to his triglycerides. He has had levels near 1000 in the past. He will need to go on gemfibrozil or something similar. He will certainly need close f/u with his PCP as an outpatient. For now, we will treat w/ IV hydration, NPO status, glucose control (q 1 hr checks and PRN insulin), and TRAINING INTERN Fentanyl for pain control. CT did not show an abcess or necrosis. Recheck lipase in AM. Check lipids. Check BMP q 4 hrs. CBC in AM. CMP in AM. Pt already given banana bag. 2. Probable pericarditis: This is kind of an incidental finding. Pt's EKG shows diffuse mild ST elevation, classic for pericarditis. Pt is otherwise asymptomatic. I am reluctant to treat w/ IV NSAID's or steroids given his DM and pancreatitis. We will get echo, cardiology consulted. Consider IV steroids if evidence of detectable pericardial effusion. Otherwise, wait til pt taking PO to start NSAID's. 3. GI proph: Start IV PPI. 4. DVT proph: Start w/ SCD's, pt is very active. Encourage ambulation once pt is off TRAINING INTERN. 5. DM2: Hold PO meds. Will likely d/c Invokana until pt can f/u with PCP. SSI 6. HTN: Hold meds, monitor vitals. COURSE Allergies Coded Allergies Type Severity Reaction Last Updated Verified No Known Drug Allergies 06/08/15 No Laboratory Tests Test 11/16/16 08:20 11/16/16 08:25 White Blood Count 15.8 x10^3/uL (4.0-11.0) Red Blood Count 5.57 x10^6/uL (4.30-5.70) Hemoglobin 16.3 g/dL (13.0-17.5) Hematocrit 48.3 % (39.0-53.0) Mean Corpuscular Volume 87 fL (79-100) Mean Corpuscular Hemoglobin 29 pg (25-35) Mean Corpuscular Hemoglobin Concent 34 g/dL (31-37) Red Cell Distribution Width 15.0 % (11.5-14.5) Platelet Count 261 x10^3/uL (140-400) Neutrophils (%) (Auto) 71 % (31-73) Lymphocytes (%) (Auto) 20 % (24-48) Monocytes (%) (Auto) 6 % (0-9) Eosinophils (%) (Auto) 1 % (0-3) Basophils (%) (Auto) 2 % (0-3) Neutrophils # (Auto) 11.2 x10^3uL (1.8-7.7) Lymphocytes # (Auto) 3.2 x10^3/uL (1.0-4.8) Monocytes # (Auto) 0.9 x10^3/uL (0.0-1.1) Eosinophils # (Auto) 0.2 x10^3/uL (0.0-0.7) Basophils # (Auto) 0.3 x10^3/uL (0.0-0.2) Segmented Neutrophils % 66 % (35-66) Lymphocytes % 23 % (24-48) Monocytes % 10 % (0-10) Eosinophils % 1 % (0-5) Platelet Estimate Adequate (ADEQUATE) Sodium Level 131 mmol/L (136-145) Potassium Level 4.6 mmol/L (3.5-5.1) Chloride Level 92 mmol/L (98-107) Carbon Dioxide Level 19 mmol/L (21-32) Anion Gap 20 (6-14) Blood Urea Nitrogen 20 mg/dL (8-26) Creatinine 1.4 mg/dL (0.7-1.3) Estimated GFR (Cockcroft-Gault) 69.4 BUN/Creatinine Ratio 14 (6-20) Glucose Level 330 mg/dL (70-99) Lactic Acid Level mmol/L (0.4-2.0) Calcium Level 8.8 mg/dL (8.5-10.1) Total Bilirubin 0.8 mg/dL (0.2-1.0) Aspartate Amino Transf (AST/SGOT) U/L (15-37) Alanine Aminotransferase (ALT/SGPT) 22 U/L (16-63) Alkaline Phosphatase 111 U/L (46-116) Creatine Kinase 209 U/L (39-308) Troponin I Quantitative < 0.017 ng/mL (0-0.055) Total Protein 7.7 g/dL (6.4-8.2) Albumin 3.7 g/dL (3.4-5.0) Albumin/Globulin Ratio 0.9 (1.0-1.7) Lipase 3030 U/L (73-393) Ethyl Alcohol Level < 10 mg/dL (0-10) Urine Collection Type Unknown Urine Color Yellow Urine Clarity Clear Urine pH 5.0 Urine Specific Drummond <=1.005 Urine Protein Neg (NEG-TRACE) Urine Glucose (UA) 500 mg/dL (NEG) Urine Ketones (Stick) 80 mg/dL (NEG) Urine Blood Neg (NEG) Urine Nitrite Neg (NEG) Urine Bilirubin Neg (NEG) Urine Urobilinogen Dipstick 0.2 mg/dL (0.2 mg/dL) Urine Leukocyte Esterase Neg (NEG) Urine RBC 0 /HPF (0-2) Urine WBC 0 /HPF (0-4) Urine Squamous Epithelial Cells Occ /LPF Urine Bacteria 0 /HPF (0-FEW) Urine Opiates Screen Pos (NEG) Urine Methadone Screen Neg (NEG) Urine Barbiturates Neg (NEG) Urine Phencyclidine Screen Neg (NEG) Urine Amphetamine/Methamphetamine Neg (NEG) Urine Benzodiazepines Screen Neg (NEG) Urine Cocaine Screen Neg (NEG) Urine Cannabinoids Screen Pos (NEG) Urine Ethyl Alcohol Neg (NEG) Current Medications Medications (Trade) Dose Ordered Sig/José Route PRN Reason Start Time Stop Time Status Last Admin Dose Admin Fentanyl Citrate (Fentanyl 2ml Vial) 25 mcg PRN Q15MIN PRN IV PAIN GREATER THAN 3/10 11/16/16 08:30 5/14/17 08:29 11/16/16 13:10 Ondansetron HCl (Zofran) 4 mg 1X ONCE IV 11/16/16 08:45 11/16/16 08:46 DC 11/16/16 08:42 Famotidine (Pepcid) 20 mg 1X ONCE IVP 11/16/16 08:45 11/16/16 08:46 DC 11/16/16 08:45 Multivitamins/ Minerals 10 ml/ Folic Acid 1 mg/ Thiamine HCl 100 mg/Lactated Ringer's 1,011.1 ml @ 1,000 mls/ hr 1X ONCE IV 11/16/16 08:45 11/16/16 09:45 DC 11/16/16 08:45 Promethazine HCl 50 mg/Sodium Chloride 52 ml @ 101 mls/hr PRN Q6HRS PRN IV NAUSEA/VOMITING 11/16/16 08:45 11/16/16 08:49 Promethazine HCl (Phenergan) 25 mg STK-MED ONCE IV 11/16/16 08:37 11/16/16 08:38 DC Lactated Ringer's 0 ml @ As Directed STK-MED ONCE IV 11/16/16 08:37 11/16/16 14:12 DC Sodium Chloride 50 ml @ As Directed STK-MED ONCE .ROUTE 11/16/16 08:37 11/16/16 14:08 DC Thiamine HCl 200 mg STK-MED ONCE IV 11/16/16 08:37 11/16/16 08:38 DC Multivitamins/ Minerals (Infuvite Adult) 10 ml STK-MED ONCE IV 11/16/16 08:37 11/16/16 08:38 DC Folic Acid 5 mg STK-MED ONCE IV 11/16/16 08:37 11/16/16 08:38 DC Insulin Human Regular (Novolin R) 6 unit 1X ONCE IV 11/16/16 10:15 11/16/16 10:17 DC 11/16/16 10:15 Vancomycin HCl (Vanco Per Pharmacy) 1 each PRN DAILY PRN MC SEE COMMENTS 11/16/16 11:30 11/16/16 14:15 DC Vancomycin HCl 2 gm/Sodium Chloride 500 ml @ 250 mls/hr 1X ONCE IV 11/16/16 12:00 11/16/16 13:59 DC 11/16/16 13:49 Ondansetron HCl (Zofran) 4 mg PRN Q4HRS PRN IV NAUSEA/VOMITING 11/16/16 11:30 11/17/16 11:29 Morphine Sulfate (Morphine 2mg Syringe) 2 mg PRN Q2HR PRN IV PAIN 11/16/16 11:30 11/17/16 11:29 11/16/16 13:50 Sodium Chloride 1,000 ml @ 200 mls/hr Q5H IV 11/16/16 11:18 11/16/16 14:08 DC 11/16/16 13:48 Acetaminophen (Tylenol) 650 mg PRN Q4HRS PRN PO FEVER 11/16/16 11:30 11/17/16 11:29 Fentanyl Citrate 30 ml @ 0 mls/hr CONT PRN PRN IV PROTOCOL 11/16/16 14:00 Naloxone HCl (Narcan) 0.4 mg PRN Q2MIN PRN IV SEE INSTRUCTIONS 11/16/16 14:00 Vancomycin HCl 1.75 gm/Sodium Chloride 500 ml @ 250 mls/hr Q12H IV 11/17/16 02:00 11/17/16 02:00 DC Insulin Aspart (Novolog) 0-7 UNITS Q1HR SQ 11/16/16 15:00 UNV Dextrose 12.5 gm PRN Q15MIN PRN IV SEE COMMENTS 11/16/16 14:15 UNV Sodium Chloride 1,000 ml @ 200 mls/hr Q5H IV 11/16/16 14:15 UNV Vital Signs Date Time Temp Pulse Resp B/P (MAP) Pulse Ox O2 Delivery O2 Flow Rate FiO2 11/16/16 13:50 22 98 Room Air EKG 1: 0.5-[address] elevation, all leads, with NSR EKG 2: Unchanged diffuse ST elevation, NSR CT abd/pelvis: Examination: CT of the abdomen pelvis without contrast History: History of abdominal pain for 2 days Comparison: 10/17/2016 Technique: Axial CT images of the abdomen pelvis were performed without contrast. Coronal and sagittal reformats were performed. PQRS Compliance Statement: One or more of the following individualized dose reduction techniques were utilized for this examination: 1. Automated exposure control 2. Adjustment of the mA and/or kV according to patient size 3. Use of iterative reconstruction technique Findings: Minimal bibasal lung atelectasis identified. No evidence of free air identified. There is diffuse decreased attenuation noted throughout the liver likely hepatic steatosis. The gallbladder is mildly distended. The visualized spleen, adrenals grossly appears unremarkable. The stomach is mildly distended. There is questionable minimal fat stranding identified about the pancreas in the region of the pancreatic head. No evidence of intrarenal collecting system calculi or hydronephrosis. The small bowel is nondilated. The appendix is normal. Feces and gas noted in the colon. Urinary bladder is mildly distended. The caliber of the aorta grossly appears unremarkable. The urinary bladder is mildly distended. No evidence of lytic bony destructive lesion identified. Impression: 1. Minimal fat stranding identified about the head of the pancreas, nonspecific, mild pancreatitis is a possibility. Correlate with lab values. 2. Hepatic steatosis KAREN PERES MD November 16, 2016 14:39
[2016-11-16] MEDS: INSULIN ASPART 300 UNITS/3 ML INSULN.PEN SQ SCH ×9 (15:27→23:00)
--- NOTE | 2016-11-16 15:41 | PDOC ---
PROVIDER NOTE PROVIDER NOTE PROVIDER NOTE Pericarditis, likely secondary to pancreatitis. Incidental finding, no clear symptoms. Normal exam Plan for routine echo When able to take p.o consider Tricor 145mg daily for hypertriglyceridemia. Agree with current plan If he has chest pain suggestive of pericarditis, consider colchicine/NSAIDs, prefer to avoid steroids. Thanks MARIO VUONG MD November 16, 2016 15:41
--- NOTE | 2016-11-16 16:49 | CONS ---
DATE OF CONSULTATION: 11/16/2016 REASON FOR CONSULTATION: Possible pericarditis. HISTORY OF PRESENT ILLNESS: The patient is a 36-year-old male who presented to the hospital in the setting of nausea and vomiting. In the ER, he was noted to have elevated lipase and diagnosed with pancreatitis. He had EKG performed, which was suggestive of diffuse ST elevations and classic for pericarditis and therefore, Cardiology was asked to evaluate him. Initial laboratory studies did not reveal any ischemic pathology and the patient did not have any specific cardiovascular limitations. The patient denies any chest pain, orthopnea, PND or lower extremity edema. He has not had any prior syncope or palpitations. He has been admitted for IV hydration and control of his blood sugars and hypertriglyceridemia. PAST MEDICAL HISTORY: 1. Diabetes. 2. Recurrent pancreatitis. 3. Polysubstance abuse. 4. Hypertension. SOCIAL HISTORY: The patient smokes approximately a pack a day. He occasionally uses marijuana. Drinks alcohol frequently. He is and currently going is school. Denies any other specific issues. FAMILY HISTORY: Notable for diabetes and hypertension, but no prior history of sudden cardiac . ALLERGIES: No known drug allergies. CURRENT CARDIOVASCULAR MEDICATIONS: None. REVIEW OF SYSTEMS: Negative for 10 out of 14 systems reviewed, unless otherwise mentioned above in HPI. PHYSICAL EXAMINATION: VITAL SIGNS: 97.5, 100, 22, 137/91, 98% on room air. GENERAL: He is sedated from pain medication, but is easily arousable. HEAD AND NECK: Unremarkable. CARDIAC: Regular rate and rhythm with a soft systolic murmur, but no rubs or gallops. LUNGS: Clear to auscultation anteriorly bilaterally. ABDOMEN: Diffusely to either to palpation with hypoactive bowel sounds. No rebound or guarding is appreciated. MUSCULOSKELETAL: No trauma. EXTREMITIES: No swelling. A 2+ radial and dorsalis pedis pulses. NEUROLOGIC: No focal deficits, although the examination is limited due to the patient's somnolence. DIAGNOSTIC STUDIES: Sodium 131, creatinine 1.4, cardiac enzymes negative x 1, lipase 3030. Urine toxicology suggestive of a recent marijuana use. CBC with an elevated white blood cell count of 15.8 with a hemoglobin 16.3, and a platelet count of 261. Abdomen and pelvis CT does not reveal any significant pathology. EKG reviewed and notable for diffuse ST elevation and GA segment depression suggestive of pericarditis. IMPRESSION: 1. Likely incidental finding of pericarditis in the setting of acute pancreatitis. 2. Hypertension. 3. Diabetes. RECOMMENDATIONS: 1.When the patient is able to start taking oral medications, we will start him on TriCor 145 mg daily for his hypertriglyceridemia after lipid panel is available. 2.We will await the results of his echocardiogram. If he does have a significant pericardial effusion, then would continue conservative management and initiate him on colchicine and NSAID therapy. In the long run, steroids would not be beneficial for him and they may actually increase the risk of recurrent pericarditis. Thank you for this consultation. MARIO VUONG MD DR: JESSICA/familia JOB#: [id number] / [id number]
[2016-11-16 17:07] LABS: CHOLESTEROL 393 mg/dL (0-200)
[2016-11-16 17:07] LABS: CALCIUM 8.7 mg/dL (8.5-10.1); CREATININE 1.3 mg/dL (0.7-1.3); GFR 75.6
[2016-11-16 17:08] LABS: HDLC 26 mg/dL (40-60); TRIGLYCERIDES 2905 mg/dL (0-150)
[2016-11-16 17:16] LABS: POTASSIUM 5.4 mmol/L (3.5-5.1)
[2016-11-16] MEDS ORDERED: CANA300T PO (22:41)
[2016-11-16] MEDS ORDERED: LISI2.5T PO (22:41)
[2016-11-16] MEDS ORDERED: METF500T4 PO (22:41)
[2016-11-16] MEDS ORDERED: PROM25TA10 PO (22:41)
[2016-11-17] VITALS (7 sets, daily range): BP systolic 136–163; BP diastolic 80–93
[2016-11-17] MEDS: INSULIN ASPART 300 UNITS/3 ML INSULN.PEN SQ SCH ×3 (00:01→03:00)
[2016-11-17 00:20] LABS: BLOOD UREA NITROGEN 17 mg/dL (8-26); CALCIUM 8.6 mg/dL (8.5-10.1); CHLORIDE 99 mmol/L (98-107); CREATININE 1.3 mg/dL (0.7-1.3); GFR 75.6; GLUCOSE 207 mg/dL (70-99); POTASSIUM 5.3 mmol/L (3.5-5.1); SODIUM 137 mmol/L (136-145)
[2016-11-17 00:30] LABS: ANION GAP 33 (6-14)
[2016-11-17] MEDS ORDERED: IV NORMAL SALINE 1,000ML 1,000 ML IV ONE (01:00)
[2016-11-17 01:13] LABS: BGAS PH 7.16 (7.35-7.46)
[2016-11-17] MEDS ORDERED: INSULIN REGULAR 150 UNIT in 0.9 % SODIUM CHLORIDE 150ML 150 ML IV PRN (01:15)
[2016-11-17] MEDS ORDERED: IV DEXTROSE 5 %-0.45 % NACL 1,000 ML IV SCH (01:15)
[2016-11-17] MEDS ORDERED: 0.9 % SODIUM CHLORIDE 150ML 150 ML ONE (01:38)
[2016-11-17] MEDS ORDERED: INSULIN REGULAR 100 UNIT/ML 10ML VIAL. ONE (01:38)
[2016-11-17] MEDS ORDERED: VANCOMYCIN 1.75 GM in IV NORMAL SALINE 500ML 500 ML IV SCH (02:00)
[2016-11-17 02:07] LABS: BLOOD UREA NITROGEN 17 mg/dL (8-26); CALCIUM 8.2 mg/dL (8.5-10.1); CHLORIDE 101 mmol/L (98-107); CREATININE 1.3 mg/dL (0.7-1.3); GFR 75.6; GLUCOSE 221 mg/dL (70-99); SODIUM 137 mmol/L (136-145)
[2016-11-17 02:25] LABS: ANION GAP 31 (6-14)
[2016-11-17 02:29] LABS: POTASSIUM 6.2 mmol/L (3.5-5.1)
[2016-11-17 02:30] LABS: CARBON DIOXIDE < 5 mmol/L (21-32)
[2016-11-17] MEDS ORDERED: IV DEXTROSE 5% 1,000 ML ONE (02:57)
[2016-11-17] MEDS ORDERED: SODIUM BICARB ADULT 8.4% 50 MEQ/50 ML DISP.SYRIN. ONE (02:57)
[2016-11-17] MEDS ORDERED: DEXTROSE 50% IV ONE (03:00)
[2016-11-17] MEDS ORDERED: SODIUM BICARBONATE IVF IV ONE (03:00)
[2016-11-17] MEDS ORDERED: WATER IV ONE (03:00)
--- NOTE | 2016-11-17 04:00 | PDOC ---
PROGRESS NOTES Assessment 1. Acute pancreatitis due to hypertriglyceridemia: As evidenced by his triglyceride level of 2950. Pt has received 4-5 liters of fluid so far. He continues to have excellent urine output and his renal function has been normal. 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 He is afebrile and his BP is normal. I will continue to hydrate and give him an insulin drip and D5 infusion in an effort to drive down the triglyceride level. Pt may ultimately need plasmapharesis if he does not turn the corner soon. I will need to see if this service is available at , and may request transfer. His next labs are due at 0400. If his potassium and bicarb are not improving I will call . I spoke to pt and his Bernadette about all of this and they are agreeable to a transfer to only or [place]. 2. Metabolic acidosis with hyperkalemia: This is likely due to #1. DKA is another possibility, as he did have ketones in his urine, but this would be very unlikely in a type 2 diabetic who does not require insulin. He does take Invokana, which has been shown to cause DKA. The treatment for pancreatitis and DKA parallel each other at this point, so distinguishing between the two is not as important right now as it is to continue w/ supportive care and aggressive hydration. 3. Hypertriglyceridemia: As above. Pt will need lipid treatment by mouth once the acute event is resolving. 4. Disp: Guarded prognosis, consider transfer if not turning corner w/ labs soon. Problems: Plan of Care: see other orders Subjective Pt has been comfortable w/ WAREHOUSE OPERATOR pump, but continues to be requesting food and drink. No fever, chest pain, SOA, tremors, twitching, or mental status changes. Pt states that he would really like some ice chips to chew on. Objective Vital Signs Date Time Temp Pulse Resp B/P (MAP) Pulse Ox O2 Delivery O2 Flow Rate FiO2 11/17/16 02:30 101 26 141/88 (105) 96 Room Air 11/17/16 00:58 97.9 Intake and Output 11/17/16 07:00 Intake Total 2025 ml Output Total 2775 ml Balance -750 ml Intake Oral 0 ml IV Total 2025 ml Output Urine Total 2700 ml Emesis 75 ml # Voids 2 Abdomen: Other (Mild-moderate diffuse TTP with voluntary guarding, no rigidity or rebound TTP. No masses. No significant distension.) Heart: Regular rate, Normal S1, Normal S2, No murmurs Extremities: No edema, Normal pulses General: Alert, Oriented X3, Cooperative, No acute distress HEENT: PERRLA, EOMI, Other (Tacky MM) Lungs: Clear to auscultation, Normal air movement Neuro: Normal speech, Strength at 5/5 X4 ext, Normal tone, Cranial nerves 3-12 NL, Reflexes 2+ Skin: No rashes Review of Relevant I have reviewed the following items luciana (where applicable) has been applied. Labs Laboratory Tests Test 11/16/16 08:20 11/16/16 08:25 11/16/16 14:24 11/16/16 16:18 White Blood Count 15.8 x10^3/uL (4.0-11.0) Red Blood Count 5.57 x10^6/uL (4.30-5.70) Hemoglobin 16.3 g/dL (13.0-17.5) Hematocrit 48.3 % (39.0-53.0) Mean Corpuscular Volume 87 fL (79-100) Mean Corpuscular Hemoglobin 29 pg (25-35) Mean Corpuscular Hemoglobin Concent 34 g/dL (31-37) Red Cell Distribution Width 15.0 % (11.5-14.5) Platelet Count 261 x10^3/uL (140-400) Neutrophils (%) (Auto) 71 % (31-73) Lymphocytes (%) (Auto) 20 % (24-48) Monocytes (%) (Auto) 6 % (0-9) Eosinophils (%) (Auto) 1 % (0-3) Basophils (%) (Auto) 2 % (0-3) Neutrophils # (Auto) 11.2 x10^3uL (1.8-7.7) Lymphocytes # (Auto) 3.2 x10^3/uL (1.0-4.8) Monocytes # (Auto) 0.9 x10^3/uL (0.0-1.1) Eosinophils # (Auto) 0.2 x10^3/uL (0.0-0.7) Basophils # (Auto) 0.3 x10^3/uL (0.0-0.2) Segmented Neutrophils % 66 % (35-66) Lymphocytes % 23 % (24-48) Monocytes % 10 % (0-10) Eosinophils % 1 % (0-5) Platelet Estimate Adequate (ADEQUATE) Sodium Level 131 mmol/L (136-145) 137 mmol/L (136-145) Potassium Level 4.6 mmol/L (3.5-5.1) 5.4 mmol/L (3.5-5.1) Chloride Level 92 mmol/L (98-107) 98 mmol/L (98-107) Carbon Dioxide Level 19 mmol/L (21-32) 14 mmol/L (21-32) Anion Gap 20 (6-14) 25 (6-14) Blood Urea Nitrogen 20 mg/dL (8-26) 17 mg/dL (8-26) Creatinine 1.4 mg/dL (0.7-1.3) 1.3 mg/dL (0.7-1.3) Estimated GFR (Cockcroft-Gault) 69.4 75.6 BUN/Creatinine Ratio 14 (6-20) Glucose Level 330 mg/dL (70-99) 201 mg/dL (70-99) Lactic Acid Level mmol/L (0.4-2.0) mmol/L (0.4-2.0) Calcium Level 8.8 mg/dL (8.5-10.1) 8.7 mg/dL (8.5-10.1) Total Bilirubin 0.8 mg/dL (0.2-1.0) Aspartate Amino Transf (AST/SGOT) U/L (15-37) Alanine Aminotransferase (ALT/SGPT) 22 U/L (16-63) Alkaline Phosphatase 111 U/L (46-116) Creatine Kinase 209 U/L (39-308) Troponin I Quantitative < 0.017 ng/mL (0-0.055) < 0.017 ng/mL (0-0.055) Total Protein 7.7 g/dL (6.4-8.2) Albumin 3.7 g/dL (3.4-5.0) Albumin/Globulin Ratio 0.9 (1.0-1.7) Lipase 3030 U/L (73-393) Ethyl Alcohol Level < 10 mg/dL (0-10) Urine Collection Type Unknown Urine Color Yellow Urine Clarity Clear Urine pH 5.0 Urine Specific [place] <=1.005 Urine Protein Neg (NEG-TRACE) Urine Glucose (UA) 500 mg/dL (NEG) Urine Ketones (Stick) 80 mg/dL (NEG) Urine Blood Neg (NEG) Urine Nitrite Neg (NEG) Urine Bilirubin Neg (NEG) Urine Urobilinogen Dipstick 0.2 mg/dL (0.2 mg/dL) Urine Leukocyte Esterase Neg (NEG) Urine RBC 0 /HPF (0-2) Urine WBC 0 /HPF (0-4) Urine Squamous Epithelial Cells Occ /LPF Urine Bacteria 0 /HPF (0-FEW) Urine Opiates Screen Pos (NEG) Urine Methadone Screen Neg (NEG) Urine Barbiturates Neg (NEG) Urine Phencyclidine Screen Neg (NEG) Urine Amphetamine/Methamphetamine Neg (NEG) Urine Benzodiazepines Screen Neg (NEG) Urine Cocaine Screen Neg (NEG) Urine Cannabinoids Screen Pos (NEG) Urine Ethyl Alcohol Neg (NEG) Triglycerides Level 2905 mg/dL (0-150) Cholesterol Level 393 mg/dL (0-200) LDL Cholesterol, Calculated mg/dL (0-100) VLDL Cholesterol, Calculated mg/dL (0-40) Non-HDL Cholesterol Calculated 367 mg/dL (0-129) HDL Cholesterol 26 mg/dL (40-60) Cholesterol/HDL Ratio 15.0 Test 11/16/16 22:45 11/17/16 00:00 11/17/16 00:55 11/17/16 01:50 Troponin I Quantitative < 0.017 ng/mL (0-0.055) Sodium Level 137 mmol/L (136-145) 137 mmol/L (136-145) Potassium Level 5.3 mmol/L (3.5-5.1) 6.2 mmol/L (3.5-5.1) Chloride Level 99 mmol/L (98-107) 101 mmol/L (98-107) Carbon Dioxide Level < 5 mmol/L (21-32) < 5 mmol/L (21-32) Anion Gap 33 (6-14) 31 (6-14) Blood Urea Nitrogen 17 mg/dL (8-26) 17 mg/dL (8-26) Creatinine 1.3 mg/dL (0.7-1.3) 1.3 mg/dL (0.7-1.3) Estimated GFR (Cockcroft-Gault) 75.6 75.6 Glucose Level 207 mg/dL (70-99) 221 mg/dL (70-99) Calcium Level 8.6 mg/dL (8.5-10.1) 8.2 mg/dL (8.5-10.1) Blood Gas pH 7.16 (7.35-7.46) Blood Gas PCO2 25 mmHg (35-46) Blood Gas PO2 87 mmHg (80-100) Blood Gas HCO3 9 mmol/L (21-28) Arterial Bld O2 Saturation (Calc) 94 % (92-99) FiO2 21 % Medications Current Medications Fentanyl Citrate (Fentanyl 2ml Vial) 25 mcg PRN Q15MIN PRN IV PAIN GREATER THAN 3/10 Last administered on 11/16/16 13:10; Start 11/16/16 at 08:30; Stop at 00:50; Status DC Ondansetron HCl (Zofran) 4 mg 1X ONCE IV Last administered on 11/16/16 08:42 ; Start 11/16/16 at 08:45; Stop 11/16/16 at 08:46; Status DC Famotidine (Pepcid) 20 mg 1X ONCE IVP Last administered on 11/16/16 08:45; Start 11/16/16 at 08:45; Stop 11/16/16 at 08:46; Status DC Multivitamins/ Minerals 10 ml/ Folic Acid 1 mg/ Thiamine HCl 100 mg/Lactated Ringer's 1,011.1 ml @ 1,000 mls/ hr 1X ONCE IV Last administered on 08:45; Start 11/16/16 at 08:45; Stop 11/16/16 at 09:45; Status DC Promethazine HCl 50 mg/Sodium Chloride 52 ml @ 101 mls/hr PRN Q6HRS PRN IV NAUSEA/VOMITING Last administered on 11/16/16 19:54; Start 11/16/16 at 08:45 Promethazine HCl (Phenergan) 25 mg STK-MED ONCE IV ; Start 11/16/16 at 08:37; Stop 11/16/16 at 08:38; Status DC Lactated Ringer's 0 ml @ As Directed STK-MED ONCE IV ; Start 11/16/16 at 08:37; Stop 11/16/16 at 14:12; Status DC Sodium Chloride 50 ml @ As Directed STK-MED ONCE .ROUTE ; Start 11/16/16 at 08: 37; Stop 11/16/16 at 14:08; Status DC Thiamine HCl 200 mg STK-MED ONCE IV ; Start 11/16/16 at 08:37; Stop 11/16/16 at 08:38; Status DC Multivitamins/ Minerals (Infuvite Adult) 10 ml STK-MED ONCE IV ; Start 11/16/16 at 08:37; Stop 11/16/16 at 08:38; Status DC Folic Acid 5 mg STK-MED ONCE IV ; Start 11/16/16 at 08:37; Stop 11/16/16 at 08: 38; Status DC Insulin Human Regular (Novolin R) 6 unit 1X ONCE IV Last administered on 10:15; Start 11/16/16 at 10:15; Stop 11/16/16 at 10:17; Status DC Vancomycin HCl (Vanco Per Pharmacy) 1 each PRN DAILY PRN MC SEE COMMENTS; Start 11/16/16 at 11:30; Stop 11/16/16 at 14:15; Status DC Vancomycin HCl 2 gm/Sodium Chloride 500 ml @ 250 mls/hr 1X ONCE IV Last administered on 11/16/16 13:49; Start 11/16/16 at 12:00; Stop 11/16/16 at 13:59 ; Status DC Ondansetron HCl (Zofran) 4 mg PRN Q4HRS PRN IV NAUSEA/VOMITING Last administered on 11/17/16 00:05; Start 11/16/16 at 11:30; Stop 11/17/16 at 11:29 Morphine Sulfate (Morphine 2mg Syringe) 2 mg PRN Q2HR PRN IV PAIN Last administered on 11/16/16 13:50; Start 11/16/16 at 11:30; Stop 11/17/16 at 00:50 ; Status DC Sodium Chloride 1,000 ml @ 200 mls/hr Q5H IV Last administered on 11/16/16 13 :48; Start 11/16/16 at 11:18; Stop 11/16/16 at 14:08; Status DC Acetaminophen (Tylenol) 650 mg PRN Q4HRS PRN PO FEVER; Start 11/16/16 at 11:30 ; Stop 11/17/16 at 11:29 Fentanyl Citrate 30 ml @ 0 mls/hr CONT PRN PRN IV PROTOCOL Last administered on 11/16/16 15:26; Start 11/16/16 at 14:00 Naloxone HCl (Narcan) 0.4 mg PRN Q2MIN PRN IV SEE INSTRUCTIONS; Start 11/16/16 at 14:00 Vancomycin HCl 1.75 gm/Sodium Chloride 500 ml @ 250 mls/hr Q12H IV ; Start at 02:00; Stop 11/17/16 at 02:00; Status DC Insulin Aspart (Novolog) 0-7 UNITS Q1HR SQ Last administered on 11/16/16 16:33 ; Start 11/16/16 at 15:00 Dextrose 12.5 gm PRN Q15MIN PRN IV SEE COMMENTS; Start 11/16/16 at 14:15 Sodium Chloride 1,000 ml @ 200 mls/hr Q5H IV Last administered on 11/16/16 22 :04; Start 11/16/16 at 14:30 Pantoprazole Sodium (Protonix Vial) 40 mg DAILYAC IVP ; Start 11/17/16 at 07:30 Promethazine HCl (Phenergan) 25 mg STK-MED ONCE IV ; Start 11/16/16 at 19:51; Stop 11/16/16 at 19:52; Status DC Sodium Chloride 50 ml @ As Directed STK-MED ONCE .ROUTE ; Start 11/16/16 at 19: 51; Stop 11/16/16 at 19:52; Status DC Sodium Chloride 1,000 ml @ 1,000 mls/hr 1X ONCE IV Last administered on 01:00; Start 11/17/16 at 01:00; Stop 11/17/16 at 01:59; Status DC Insulin Human Regular 150 unit/ Sodium Chloride 151.5 ml @ 0 mls/hr CONT PRN IV SEE I/O RECORD Last administered on 11/17/16 02:03; Start 11/17/16 at 01:15 Dextrose/Sodium Chloride 1,000 ml @ 200 mls/hr Q5H IV Last administered on 02:04; Start 11/17/16 at 01:15 Sodium Chloride 150 ml @ As Directed STK-MED ONCE .ROUTE ; Start 11/17/16 at 01 :38; Stop 11/17/16 at 01:39; Status DC Insulin Human Regular (Novolin R) 100 unit STK-MED ONCE .ROUTE ; Start 11/17/16 at 01:38; Stop 11/17/16 at 01:39; Status DC Sodium Bicarbonate 150 meq/Dextrose 1,150 ml @ 500 mls/hr 1X ONCE IV Last administered on 11/17/16t 03:19; Start 11/17/16 at 03:00; Stop 11/17/16 at 05:17 Dextrose 1,000 ml @ As Directed STK-MED ONCE .ROUTE ; Start 11/17/16 at 02:57; Stop 11/17/16 at 02:58; Status DC Sodium Bicarbonate 50 meq STK-MED ONCE .ROUTE ; Start 11/17/16 at 02:57; Stop at 02:58; Status DC Active Scripts Active Dicyclomine Hcl 20 Mg Tablet 1 Tab PO QID Zofran Odt (Ondansetron) 4 Mg Tab.rapdis 4 Mg PO Q6HRS PRN Reported Promethazine Hcl 25 Mg Tablet 25 Mg PO PRN Q6HRS PRN Metformin Hcl 500 Mg Tablet 500 Mg PO BIDWMEALS Invokana (Canagliflozin) 300 Mg Tablet 300 Mg PO DAILY Lisinopril 2.5 Mg Tablet 2.5 Mg PO DAILY Vitals/I & O Vital Sign - Last 24 Hours 11/16/16 11/16/16 11/16/16 11/16/16 08:49 13:30 13:45 13:45 Temp 98.0 98.0 Pulse 92 92 Resp 16 20 20 B/P (MAP) 140/74 (96) 140/74 (96) Pulse Ox 93 98 98 O2 Delivery Room Air Room Air Room Air 11/16/16 11/16/16 11/16/16 11/16/16 13:50 14:20 14:30 15:26 Pulse 89 Resp 22 20 20 20 B/P (MAP) 106/61 (76) Pulse Ox 98 96 95 96 O2 Delivery Room Air Room Air Room Air Room Air 11/16/16 11/16/16 11/16/16 11/16/16 15:30 15:56 16:00 17:06 Pulse 96 101 Resp 20 20 20 B/P (MAP) 129/74 (92) 146/74 (98) Pulse Ox 96 96 97 O2 Delivery Room Air Room Air Room Air Room Air 11/16/16 11/16/16 11/16/16 11/16/16 18:00 18:38 19:33 20:00 Pulse 109 106 104 Resp 20 20 27 B/P (MAP) 152/87 (108) 144/88 (106) 143/80 (101) Pulse Ox 95 96 98 O2 Delivery Room Air Room Air Room Air Room Air 11/16/16 11/16/16 11/16/16 11/16/16 20:36 21:30 22:45 23:33 Pulse 109 106 109 100 Resp 27 28 28 26 B/P (MAP) 127/87 (100) 119/66 (83) 140/66 (90) 154/65 (94) Pulse Ox 99 99 99 96 O2 Delivery Room Air Room Air Room Air Room Air 11/17/16 11/17/16 11/17/16 11/17/16 00:23 00:30 00:58 01:30 Temp 97.9 Pulse 102 102 Resp 26 26 B/P (MAP) 163/93 (116) 140/86 (104) Pulse Ox 98 100 O2 Delivery Room Air Room Air Room Air 11/17/16 02:30 Pulse 101 Resp 26 B/P (MAP) 141/88 (105) Pulse Ox 96 O2 Delivery Room Air Intake and Output 11/16/16 11/16/16 11/17/16 15:00 23:00 07:00 Intake Total 1052 ml 973 ml Output Total 1600 ml 1175 ml Balance 1052 ml -627 ml -1175 ml KAREN PERES MD November 17, 2016 04:00
[2016-11-17 04:31] LABS: BASO # 0.1 x10^3/uL (0.0-0.2); BASO % 1 % (0-3); EOS % 0 % (0-3); HEMATOCRIT 53.4 % (39.0-53.0); HEMOGLOBIN 16.6 g/dL (13.0-17.5); LYMPH # 1.1 x10^3/uL (1.0-4.8); LYMPH % 7 % (24-48); MEAN CORPUSCULAR HEMOGLOBIN 30 pg (25-35); MEAN CORPUSCULAR HGB CONC 31 g/dL (31-37); MEAN CORPUSCULAR VOLUME 96 fL (79-100); MONO # 0.8 x10^3/uL (0.0-1.1); MONO % 5 % (0-9); NEUT # 14.6 x10^3uL (1.8-7.7); NEUT % 88 % (31-73); PLATELET COUNT 155 x10^3/uL (140-400); RED BLOOD COUNT 5.59 x10^6/uL (4.30-5.70); RED CELL DISTRIBUTION WIDTH 16.4 % (11.5-14.5); WHITE BLOOD COUNT 16.5 x10^3/uL (4.0-11.0)
[2016-11-17 05:07] LABS: ALBUMIN/GLOBULIN RATIO 0.6 (1.0-1.7); ALK PHOS 96 U/L (46-116); BLOOD UREA NITROGEN 18 mg/dL (8-26); CHLORIDE 105 mmol/L (98-107); POTASSIUM 5.6 mmol/L (3.5-5.1); SODIUM 137 mmol/L (136-145); TOTAL BILIRUBIN 0.6 mg/dL (0.2-1.0); TOTAL PROTEIN 7.8 g/dL (6.4-8.2)
[2016-11-17 05:09] LABS: ANION GAP 27 (6-14)
[2016-11-17 05:26] LABS: % BANDS 3 % (0-9); % EOS 1 % (0-5); % LYMPHS 6 % (24-48); % MONOS 4 % (0-10); % SEGS 86 % (35-66); PLT ESTIMATE ADEQUATE (ADEQUATE)
[2016-11-17 05:27] LABS: HYPERSEGS PRESENT; TOXIC GRANULATION MOD
[2016-11-17 05:28] LABS: TOXIC VACUOLATION SLIGHT
--- NOTE | 2016-11-17 06:16 | PDOC3 ---
Discharge Summary Visit Information Date of Admission: November 16, 2016 Date of Discharge: November 17, 2016 Admitting Diagnosis: Acute pancreatitis, DKA Final Diagnosis Acute pancreatitis secondary to severe hypertriglyceridemia DKA, likely due to #1 HTN Hyperkalemia Severe metabolic acidosis due to DKA Problems: Brief Hospital Course Allergies Allergies Coded Allergies Type Severity Reaction Last Updated Verified No Known Drug Allergies 06/08/15 No Vital Signs Vital Signs Date Time Temp Pulse Resp B/P (MAP) Pulse Ox O2 Delivery O2 Flow Rate FiO2 11/17/16 05:30 110 26 146/89 (108) 98 Room Air 11/17/16 00:58 97.9 Lab Results Laboratory Tests Test 11/16/16 08:20 11/16/16 08:25 11/16/16 14:24 11/16/16 16:18 White Blood Count 15.8 x10^3/uL (4.0-11.0) Red Blood Count 5.57 x10^6/uL (4.30-5.70) Hemoglobin 16.3 g/dL (13.0-17.5) Hematocrit 48.3 % (39.0-53.0) Mean Corpuscular Volume 87 fL (79-100) Mean Corpuscular Hemoglobin 29 pg (25-35) Mean Corpuscular Hemoglobin Concent 34 g/dL (31-37) Red Cell Distribution Width 15.0 % (11.5-14.5) Platelet Count 261 x10^3/uL (140-400) Neutrophils (%) (Auto) 71 % (31-73) Lymphocytes (%) (Auto) 20 % (24-48) Monocytes (%) (Auto) 6 % (0-9) Eosinophils (%) (Auto) 1 % (0-3) Basophils (%) (Auto) 2 % (0-3) Neutrophils # (Auto) 11.2 x10^3uL (1.8-7.7) Lymphocytes # (Auto) 3.2 x10^3/uL (1.0-4.8) Monocytes # (Auto) 0.9 x10^3/uL (0.0-1.1) Eosinophils # (Auto) 0.2 x10^3/uL (0.0-0.7) Basophils # (Auto) 0.3 x10^3/uL (0.0-0.2) Segmented Neutrophils % 66 % (35-66) Lymphocytes % 23 % (24-48) Monocytes % 10 % (0-10) Eosinophils % 1 % (0-5) Platelet Estimate Adequate (ADEQUATE) Sodium Level 131 mmol/L (136-145) 137 mmol/L (136-145) Potassium Level 4.6 mmol/L (3.5-5.1) 5.4 mmol/L (3.5-5.1) Chloride Level 92 mmol/L (98-107) 98 mmol/L (98-107) Carbon Dioxide Level 19 mmol/L (21-32) 14 mmol/L (21-32) Anion Gap 20 (6-14) 25 (6-14) Blood Urea Nitrogen 20 mg/dL (8-26) 17 mg/dL (8-26) Creatinine 1.4 mg/dL (0.7-1.3) 1.3 mg/dL (0.7-1.3) Estimated GFR (Cockcroft-Gault) 69.4 75.6 BUN/Creatinine Ratio 14 (6-20) Glucose Level 330 mg/dL (70-99) 201 mg/dL (70-99) Lactic Acid Level mmol/L (0.4-2.0) mmol/L (0.4-2.0) Calcium Level 8.8 mg/dL (8.5-10.1) 8.7 mg/dL (8.5-10.1) Total Bilirubin 0.8 mg/dL (0.2-1.0) Aspartate Amino Transf (AST/SGOT) U/L (15-37) Alanine Aminotransferase (ALT/SGPT) 22 U/L (16-63) Alkaline Phosphatase 111 U/L (46-116) Creatine Kinase 209 U/L (39-308) Troponin I Quantitative < 0.017 ng/mL (0-0.055) < 0.017 ng/mL (0-0.055) Total Protein 7.7 g/dL (6.4-8.2) Albumin 3.7 g/dL (3.4-5.0) Albumin/Globulin Ratio 0.9 (1.0-1.7) Lipase 3030 U/L (73-393) Ethyl Alcohol Level < 10 mg/dL (0-10) Urine Collection Type Unknown Urine Color Yellow Urine Clarity Clear Urine pH 5.0 Urine Specific Cyrus <=1.005 Urine Protein Neg (NEG-TRACE) Urine Glucose (UA) 500 mg/dL (NEG) Urine Ketones (Stick) 80 mg/dL (NEG) Urine Blood Neg (NEG) Urine Nitrite Neg (NEG) Urine Bilirubin Neg (NEG) Urine Urobilinogen Dipstick 0.2 mg/dL (0.2 mg/dL) Urine Leukocyte Esterase Neg (NEG) Urine RBC 0 /HPF (0-2) Urine WBC 0 /HPF (0-4) Urine Squamous Epithelial Cells Occ /LPF Urine Bacteria 0 /HPF (0-FEW) Urine Opiates Screen Pos (NEG) Urine Methadone Screen Neg (NEG) Urine Barbiturates Neg (NEG) Urine Phencyclidine Screen Neg (NEG) Urine Amphetamine/Methamphetamine Neg (NEG) Urine Benzodiazepines Screen Neg (NEG) Urine Cocaine Screen Neg (NEG) Urine Cannabinoids Screen Pos (NEG) Urine Ethyl Alcohol Neg (NEG) Triglycerides Level 2905 mg/dL (0-150) Cholesterol Level 393 mg/dL (0-200) LDL Cholesterol, Calculated mg/dL (0-100) VLDL Cholesterol, Calculated mg/dL (0-40) Non-HDL Cholesterol Calculated 367 mg/dL (0-129) HDL Cholesterol 26 mg/dL (40-60) Cholesterol/HDL Ratio 15.0 Test 11/16/16 22:45 11/17/16 00:00 11/17/16 00:55 11/17/16 01:50 Troponin I Quantitative < 0.017 ng/mL (0-0.055) Sodium Level 137 mmol/L (136-145) 137 mmol/L (136-145) Potassium Level 5.3 mmol/L (3.5-5.1) 6.2 mmol/L (3.5-5.1) Chloride Level 99 mmol/L (98-107) 101 mmol/L (98-107) Carbon Dioxide Level < 5 mmol/L (21-32) < 5 mmol/L (21-32) Anion Gap 33 (6-14) 31 (6-14) Blood Urea Nitrogen 17 mg/dL (8-26) 17 mg/dL (8-26) Creatinine 1.3 mg/dL (0.7-1.3) 1.3 mg/dL (0.7-1.3) Estimated GFR (Cockcroft-Gault) 75.6 75.6 Glucose Level 207 mg/dL (70-99) 221 mg/dL (70-99) Calcium Level 8.6 mg/dL (8.5-10.1) 8.2 mg/dL (8.5-10.1) Blood Gas pH 7.16 (7.35-7.46) Blood Gas PCO2 25 mmHg (35-46) Blood Gas PO2 87 mmHg (80-100) Blood Gas HCO3 9 mmol/L (21-28) Arterial Bld O2 Saturation (Calc) 94 % (92-99) FiO2 21 % Lactic Acid Level 1.4 mmol/L (0.4-2.0) Test 11/17/16 04:15 White Blood Count 16.5 x10^3/uL (4.0-11.0) Red Blood Count 5.59 x10^6/uL (4.30-5.70) Hemoglobin 16.6 g/dL (13.0-17.5) Hematocrit 53.4 % (39.0-53.0) Mean Corpuscular Volume 96 fL (79-100) Mean Corpuscular Hemoglobin 30 pg (25-35) Mean Corpuscular Hemoglobin Concent 31 g/dL (31-37) Red Cell Distribution Width 16.4 % (11.5-14.5) Platelet Count 155 x10^3/uL (140-400) Neutrophils (%) (Auto) 88 % (31-73) Lymphocytes (%) (Auto) 7 % (24-48) Monocytes (%) (Auto) 5 % (0-9) Eosinophils (%) (Auto) 0 % (0-3) Basophils (%) (Auto) 1 % (0-3) Neutrophils # (Auto) 14.6 x10^3uL (1.8-7.7) Lymphocytes # (Auto) 1.1 x10^3/uL (1.0-4.8) Monocytes # (Auto) 0.8 x10^3/uL (0.0-1.1) Eosinophils # (Auto) 0.0 x10^3/uL (0.0-0.7) Basophils # (Auto) 0.1 x10^3/uL (0.0-0.2) Segmented Neutrophils % 86 % (35-66) Band Neutrophils % 3 % (0-9) Lymphocytes % 6 % (24-48) Monocytes % 4 % (0-10) Eosinophils % 1 % (0-5) Hypersegmented Neutrophils Present Toxic Granulation Mod Toxic Vacuolation Slight Platelet Estimate Adequate (ADEQUATE) Sodium Level 137 mmol/L (136-145) Potassium Level 5.6 mmol/L (3.5-5.1) Chloride Level 105 mmol/L (98-107) Carbon Dioxide Level < 5 mmol/L (21-32) Anion Gap 27 (6-14) Blood Urea Nitrogen 18 mg/dL (8-26) Creatinine mg/dL (0.7-1.3) Estimated GFR (Cockcroft-Gault) BUN/Creatinine Ratio (6-20) Glucose Level mg/dL (70-99) Calcium Level mg/dL (8.5-10.1) Magnesium Level 2.7 mg/dL (1.8-2.4) Total Bilirubin 0.6 mg/dL (0.2-1.0) Aspartate Amino Transf (AST/SGOT) U/L (15-37) Alanine Aminotransferase (ALT/SGPT) 32 U/L (16-63) Alkaline Phosphatase 96 U/L (46-116) Total Protein 7.8 g/dL (6.4-8.2) Albumin 3.0 g/dL (3.4-5.0) Albumin/Globulin Ratio 0.6 (1.0-1.7) Lipase 1107 U/L (73-393) Brief Hospital Course Mr. Miranda is a 36 old man with a history of diabetes and recurrent bouts of pancreatitis. He presented to the ER on 11/16 after 1-2 days of worsening abdominal pain with n/v. He had not eaten in 2 days. He stated he had a couple beers yesterday, but does not regularly drink more than that. He denied fever, cough, SOA, chest pain, diarrhea, or skin rashes. In the ER he was diagnosed with acute pancreatitis. Lipase was 3300, CT confirmed mild inflammation without pseudocyst, abscess, or necrosis of the pancreas. His WBC was 15K, but CXR and UA did not show infectious etiology. Pt was very slightly metabolically acidotic on admission. 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 His BP has been between 140-165 systolic. Unfortunately, he became more acidotic overnight, with a critical bicarb <5. His fluid rate was increased and he was started on an insulin drip w / D5NS in an effort to reduce his triglycerides and improve acidosis and hyperkalemia. His potassium went up despite that, so he was given 1 liter of D5W w/ 150 meq of HCO3. Subsequent BMP showed bicarb still <5, but K+ down to 5.6. Anion gap was improved as well. Clinically, pt is feeling better, but is still very thirsty. Urine output has been steady and more than adequate. Lactate level at 2 AM was 1.4 (normal). Pt's reported to me a few hours ago that pt was put on dialysis in 2013 when hospitalized at [facility]. I was able to review his records from that stay, and his presentation was similar (though not as severe this time). Although he is clinically improving, and his CK is normal (no rhabdo like in 2014), I have concerns about the acidosis and his propensity to flip into acute renal failure. I have recommended that we transfer to [facility] so that he can be evaluated by nephrology, GI, etc. Pt and his are both agreeable. In addition to the pancreatitis, pt also had EKG with diffuse ST elevation (on admission), suggestive of pericarditis. Troponins have been negative. Pt was seen by Dr. Arellano, and echo was normal. Pt can take colchicine for this when feeling better and ready for d/c. Discharge Information Condition at Discharge: Stable Follow Up: As Needed Disposition/Orders: D/C to Another Facility ([facility] Dischare Medications Current Medications Fentanyl Citrate (Fentanyl 2ml Vial) 25 mcg PRN Q15MIN PRN IV PAIN GREATER THAN 3/10 Last administered on 11/16/16 13:10; Start 11/16/16 at 08:30; Stop at 00:50; Status DC Ondansetron HCl (Zofran) 4 mg 1X ONCE IV Last administered on 11/16/16 08:42 ; Start 11/16/16 at 08:45; Stop 11/16/16 at 08:46; Status DC Famotidine (Pepcid) 20 mg 1X ONCE IVP Last administered on 11/16/16 08:45; Start 11/16/16 at 08:45; Stop 11/16/16 at 08:46; Status DC Multivitamins/ Minerals 10 ml/ Folic Acid 1 mg/ Thiamine HCl 100 mg/Lactated Ringer's 1,011.1 ml @ 1,000 mls/ hr 1X ONCE IV Last administered on 08:45; Start 11/16/16 at 08:45; Stop 11/16/16 at 09:45; Status DC Promethazine HCl 50 mg/Sodium Chloride 52 ml @ 101 mls/hr PRN Q6HRS PRN IV NAUSEA/VOMITING Last administered on 11/16/16 19:54; Start 11/16/16 at 08:45 Promethazine HCl (Phenergan) 25 mg STK-MED ONCE IV ; Start 11/16/16 at 08:37; Stop 11/16/16 at 08:38; Status DC Lactated Ringer's 0 ml @ As Directed STK-MED ONCE IV ; Start 11/16/16 at 08:37; Stop 11/16/16 at 14:12; Status DC Sodium Chloride 50 ml @ As Directed STK-MED ONCE .ROUTE ; Start 11/16/16 at 08: 37; Stop 11/16/16 at 14:08; Status DC Thiamine HCl 200 mg STK-MED ONCE IV ; Start 11/16/16 at 08:37; Stop 11/16/16 at 08:38; Status DC Multivitamins/ Minerals (Infuvite Adult) 10 ml STK-MED ONCE IV ; Start 11/16/16 at 08:37; Stop 11/16/16 at 08:38; Status DC Folic Acid 5 mg STK-MED ONCE IV ; Start 11/16/16 at 08:37; Stop 11/16/16 at 08: 38; Status DC Insulin Human Regular (Novolin R) 6 unit 1X ONCE IV Last administered on 10:15; Start 11/16/16 at 10:15; Stop 11/16/16 at 10:17; Status DC Vancomycin HCl (Vanco Per Pharmacy) 1 each PRN DAILY PRN MC SEE COMMENTS; Start 11/16/16 at 11:30; Stop 11/16/16 at 14:15; Status DC Vancomycin HCl 2 gm/Sodium Chloride 500 ml @ 250 mls/hr 1X ONCE IV Last administered on 11/16/16 13:49; Start 11/16/16 at 12:00; Stop 11/16/16 at 13:59 ; Status DC Ondansetron HCl (Zofran) 4 mg PRN Q4HRS PRN IV NAUSEA/VOMITING Last administered on 11/17/16 00:05; Start 11/16/16 at 11:30; Stop 11/17/16 at 11:29 Morphine Sulfate (Morphine 2mg Syringe) 2 mg PRN Q2HR PRN IV PAIN Last administered on 11/16/16 13:50; Start 11/16/16 at 11:30; Stop 11/17/16 at 00:50 ; Status DC Sodium Chloride 1,000 ml @ 200 mls/hr Q5H IV Last administered on 11/16/16 13 :48; Start 11/16/16 at 11:18; Stop 11/16/16 at 14:08; Status DC Acetaminophen (Tylenol) 650 mg PRN Q4HRS PRN PO FEVER; Start 11/16/16 at 11:30 ; Stop 11/17/16 at 11:29 Fentanyl Citrate 30 ml @ 0 mls/hr CONT PRN PRN IV PROTOCOL Last administered on 11/16/16 15:26; Start 11/16/16 at 14:00 Naloxone HCl (Narcan) 0.4 mg PRN Q2MIN PRN IV SEE INSTRUCTIONS; Start 11/16/16 at 14:00 Vancomycin HCl 1.75 gm/Sodium Chloride 500 ml @ 250 mls/hr Q12H IV ; Start at 02:00; Stop 11/17/16 at 02:00; Status DC Insulin Aspart (Novolog) 0-7 UNITS Q1HR SQ Last administered on 11/16/16 16:33 ; Start 11/16/16 at 15:00 Dextrose 12.5 gm PRN Q15MIN PRN IV SEE COMMENTS; Start 11/16/16 at 14:15 Sodium Chloride 1,000 ml @ 200 mls/hr Q5H IV Last administered on 11/16/16 22 :04; Start 11/16/16 at 14:30 Pantoprazole Sodium (Protonix Vial) 40 mg DAILYAC IVP ; Start 11/17/16 at 07:30 Promethazine HCl (Phenergan) 25 mg STK-MED ONCE IV ; Start 11/16/16 at 19:51; Stop 11/16/16 at 19:52; Status DC Sodium Chloride 50 ml @ As Directed STK-MED ONCE .ROUTE ; Start 11/16/16 at 19: 51; Stop 11/16/16 at 19:52; Status DC Sodium Chloride 1,000 ml @ 1,000 mls/hr 1X ONCE IV Last administered on 01:00; Start 11/17/16 at 01:00; Stop 11/17/16 at 01:59; Status DC Insulin Human Regular 150 unit/ Sodium Chloride 151.5 ml @ 0 mls/hr CONT PRN IV SEE I/O RECORD Last administered on 11/17/16 02:03; Start 11/17/16 at 01:15 Dextrose/Sodium Chloride 1,000 ml @ 200 mls/hr Q5H IV Last administered on 02:04; Start 11/17/16 at 01:15 Sodium Chloride 150 ml @ As Directed STK-MED ONCE .ROUTE ; Start 11/17/16 at 01 :38; Stop 11/17/16 at 01:39; Status DC Insulin Human Regular (Novolin R) 100 unit STK-MED ONCE .ROUTE ; Start 11/17/16 at 01:38; Stop 11/17/16 at 01:39; Status DC Sodium Bicarbonate 150 meq/Dextrose 1,150 ml @ 500 mls/hr 1X ONCE IV Last administered on 11/17/16 03:19; Start 11/17/16 at 03:00; Stop 11/17/16 at 05:17 ; Status DC Dextrose 1,000 ml @ As Directed STK-MED ONCE .ROUTE ; Start 11/17/16 at 02:57; Stop 11/17/16 at 02:58; Status DC Sodium Bicarbonate 50 meq STK-MED ONCE .ROUTE ; Start 11/17/16 at 02:57; Stop at 02:58; Status DC Active Scripts Active Dicyclomine Hcl 20 Mg Tablet 1 Tab PO QID Zofran Odt (Ondansetron) 4 Mg Tab.rapdis 4 Mg PO Q6HRS PRN Reported Promethazine Hcl 25 Mg Tablet 25 Mg PO PRN Q6HRS PRN Metformin Hcl 500 Mg Tablet 500 Mg PO BIDWMEALS Invokana (Canagliflozin) 300 Mg Tablet 300 Mg PO DAILY Lisinopril 2.5 Mg Tablet 2.5 Mg PO DAILY Patient Instructions Patient Instuctions D/C to [facility] via EMS, Dr. Barboza accepting physician See ANA ROSAD F/u with PCP after discharge I have spoken to his at length about his illness, and I have recommended that he never take Invokana again, as it has been linked w/ DKA in post- marketing reports. Pt should also be on a medicine for triglycerides for the rest of his life, as it has likely been the triglycerides that have led to his pancreatitis. KAREN PERES MD November 17, 2016 06:16
--- NOTE | 2016-11-17 06:48 | EKG ---
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
--- NOTE | 2016-11-17 07:18 | NUR ---
Transfer to [facility], ICU via cart accompanied by EMT's. Ngoc elmore called report to [place]. Transfer with iv normal saline at 200/hr and insulin gtt at 7.1cc/hr. 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 Vs stable. ZNo c/o pain at this time. Belongings sent with pt.
[2016-11-17] MEDS ORDERED: PANTOPRAZOLE IV PUSH 40 MG VIAL. IVP SCH (07:30)
[2016-11-17 07:31] LABS: CALCIUM 8.8 mg/dL (8.5-10.1); CREATININE 1.2 mg/dL (0.7-1.3); GFR 82.9; POTASSIUM 5.1 mmol/L (3.5-5.1)
--- NOTE | 2016-11-17 08:44 | RAD ---
EXAM: CHEST 1 VIEW History of pericarditis COMPARISON: 06/29/2016 TECHNIQUE: Single portable radiograph of the chest FINDINGS: The cardiac silhouette is unremarkable. The lungs are clear bilaterally. The costophrenic sulci are clear and well demarcated. The osseous structures and soft tissues are unremarkable. IMPRESSION: No radiographic evidence of an acute cardiopulmonary process.
--- NOTE | 2016-11-18 08:20 | CARD ---
APPROVED REPORT EXAM: Two-dimensional and M-mode echocardiogram with Doppler and color Doppler. Other Information Quality : Good INDICATION Pericarditis 2D DIMENSIONS RVDd2.8 (2.9-3.5cm)Left Atrium(2D)3.6 (1.6-4.0cm) IVSd1.2 (0.7-1.1cm)Aortic Root(2D)3.0 (2.0-3.7cm) LVDd4.5 (3.9-5.9cm)LVOT Diameter2.1 (1.8-2.4cm) PWd1.2 (0.7-1.1cm)LVDs3.1 (2.5-4.0cm) FS (%) 30.0 %SV52.8 ml LVEF(%)57.4 (>50%) Mitral Valve MV E Imbmwjrh51.2cm/sMV DECEL RSIC590om MV A Nscjxosc86.8cm/sE/A Ratio1.2 Pulmonary Vein S1 Xbvndnig71.1cm/sD2 Rzommjmu77.6cm/s LEFT VENTRICLE The left ventricle is normal size. There is normal left ventricular wall thickness. The left ventricu lar systolic function is normal and the ejection fraction is within normal range. The Ejection Fracti on is 55-60%. There is normal LV segmental wall motion. Transmitral Doppler flow pattern is normal fo r age. RIGHT VENTRICLE The right ventricle is normal size. The right ventricular systolic function is normal. ATRIA The left atrium size is normal. The right atrium size is normal. The interatrial septum is intact wit h no evidence for an atrial septal defect or patent foramen ovale as noted on 2-D or Doppler imaging. AORTIC VALVE The aortic valve is normal in structure and function. Doppler and Color Flow revealed no significant aortic regurgitation. There is no significant aortic valvular stenosis. MITRAL VALVE The mitral valve is normal in structure and function. There is no evidence of mitral valve prolapse. There is no mitral valve stenosis. Doppler and Color Flow revealed no mitral valve regurgitation note d. TRICUSPID VALVE The tricuspid valve is normal in structure and function. Doppler and Color Flow revealed no tricuspid valve regurgitation noted. There is no tricuspid valve stenosis. PULMONIC VALVE The pulmonary valve is normal in structure and function. Doppler and Color Flow revealed trace to mil d pulmonic valvular regurgitation. There is no pulmonic valvular stenosis. GREAT VESSELS The aortic root is normal in size. The ascending aorta is normal in size. PERICARDIAL EFFUSION There is no evidence of significant pericardial effusion. Critical Notification Critical Value: No <Conclusion> The left ventricular systolic function is normal and the ejection fraction is within normal range. Th e Ejection Fraction is 55-60%. There is normal LV segmental wall motion.
[2016-11-18] MEDS ORDERED: PANT40TA3 PO (14:34)
[2016-11-18] MEDS ORDERED: ONDA8TAB12 PO (14:34)
== END 2016-11-17 07:18 | disposition short-term general hospital (02) | DRG 438 ==
LOC: ER 08:07 → ICU 11:22
PROVIDERS: ADMIT Family Medicine; ATTEND Family Medicine
DX: K85.20 Alcohol induced acute pancreatitis without necrosis or infection (principal); E13.10 Other specified diabetes mellitus with ketoacidosis without coma; I31.9 Disease of pericardium, unspecified; E78.1 Pure hyperglyceridemia; E87.5 Hyperkalemia; F17.200 Nicotine dependence, unspecified, uncomplicated; F12.10 Cannabis abuse, uncomplicated; F19.10 Other psychoactive substance abuse, uncomplicated; E78.4 Other hyperlipidemia; F32.9 Major depressive disorder, single episode, unspecified; F41.9 Anxiety disorder, unspecified; I10 Essential (primary) hypertension; K76.0 Fatty (change of) liver, not elsewhere classified; Z82.49 Family history of ischemic heart disease and other diseases of the circulatory system; Z83.3 Family history of diabetes mellitus; Z99.2 Dependence on renal dialysis
CPT/HCPCS: 36415; 71010; 74176; 80048; 80053; 80061; 81001; 82550; 82803; 82947; 83690; 83735; 84484; 85007; 85027; 87040; 87641; 93005; 93306; 96365; 96375; 96376; G0480; G0481; J1815; J2270; J2405; J2550; J3010; J3370; J7040; J7120; S0028; 99285-25; J7030

== ENCOUNTER 2016-11-18 14:01 | Emergency (ER) | payer OTHER ==
[~2016-11-18] VITALS: Ht 170.2 cm; Wt 107.5 kg
[~2016-11-18 14:01] MED LIST changes: +CANA300T PO; +LISI2.5T PO; +METF500T4 PO; +PROM25TA10 PO
[2016-11-18 14:21] VITALS: BP 121/74
[2016-11-18] MEDS ORDERED: ONDA8TAB12 PO (14:34)
[2016-11-18] MEDS ORDERED: PANT40TA3 PO (14:34)
--- NOTE | 2016-11-18 14:34 | PHYS DOC ---
Past History Past Medical History: Diabetes, Pancreatitis Past Surgical History: No Surgical History Alcohol Use: Occasionally Drug Use: Marijuana Adult General Chief Complaint Chief Complaint: MULTIPLE COMPLAINTS [facility] HPI She is a pleasant 36-year-old male with history of diabetes and intermittent pancreatitis likely either due to alcohol consumption or triglyceride levels. Was seen in our emergency department several days ago and admitted to the hospital for pain patrol and fluid administration as well as GI evaluation for his pancreatic status. After 1 day here at was transferred to [facility] where he was she seen and treated in the ICU overnight. He was released to stepdown unit earlier this morning when seen by the doctor who he felt treated with such disrespect he left AGAINST MEDICAL ADVICE. At this point patient then traveled to to be evaluated in the emergency department but then left again after he was not seen for 2 hours. At this point patient denies any complaints he wanted to make sure he had appropriate follow-up with his primary care doctor and GI physician. He was somewhat frustrated with his treatment at the local facility came back to us because he wanted [place] he was not missing any of his medications. He has no points of abdominal pain, nausea, vomiting, although he is tolerated by mouth fluid he has not tried any solid foods. At this point he also denies fever, chills, shortness of breath, chest pain, weakness, dizziness or other symptoms. Review of Systems Review of Systems Constitutional: Denies fever or chills [] Eyes: Denies change in visual acuity, redness, or eye pain [] HENT: Denies nasal congestion or sore throat [] Respiratory: Denies cough or shortness of breath [] Cardiovascular: No additional information not addressed in HPI [] GI: Denies abdominal pain, nausea, vomiting, bloody stools or diarrhea [] : Denies dysuria or hematuria [] Musculoskeletal: Denies back pain or joint pain [] Integument: Denies rash or skin lesions [] Neurologic: Denies headache, focal weakness or sensory changes [] Endocrine: Denies polyuria or polydipsia [] Allergies Allergies Allergies Coded Allergies Type Severity Reaction Last Updated Verified No Known Drug Allergies 11/18/16 No Physical Exam Physical Exam Patient noted to be mildly tachycardic at 105 Constitutional: Well developed, well nourished, no acute distress, non-toxic appearance. [] HENT: Normocephalic, atraumatic, bilateral external ears normal, oropharynx moist, no oral exudates, nose normal. [] Eyes: PERRLA, EOMI, conjunctiva normal, no discharge. [] Neck: Normal range of motion, no tenderness, supple, no stridor. [] Cardiovascular: Sinus tachycardia noted Lungs & Thorax: Bilateral breath sounds clear to auscultation [] Abdomen: Bowel sounds normal, soft, no tenderness, no masses, no pulsatile masses. [] Skin: Warm, dry, no erythema, no rash. [] Extremities: No tenderness, Neurologic: Alert and oriented X 3, normal motor function, normal sensory function, no focal deficits noted. [] Psychologic: Patient mildly upset and anxious but easily consoled and appropriate. Current Patient Data Vital Signs Vital Signs Date Time Temp Pulse Resp B/P (MAP) Pulse Ox O2 Delivery O2 Flow Rate FiO2 11/18/16 14:21 98.2 108 18 99 Room Air EKG EKG [] Radiology/Procedures Radiology/Procedures [] Course & Med Decision Making Course & Med Decision Making Pertinent Labs and Imaging studies reviewed. (See chart for details) patient with no complaints at this time wouldn't make sure he had appropriate instructions and discharge follow-up with his primary care doctor. He has no complaints of abdominal pain, nausea, vomiting diarrhea or other systemic problems like fever chills or weakness. Impression: Medication refill medical screening exam Disposition primary care follow-up with referral to GI precautions given for pancreatitis and his history. [] Dragon Disclaimer Dragon Disclaimer This chart was dictated in whole or in part using Voice Recognition software in a busy, high-work load, and often noisy Emergency Department environment. It may contain unintended and wholly unrecognized errors or omissions. Departure Departure: Impression: Primary Impression: Pancreatitis Additional Impression: Tobacco use disorder Disposition: 01 HOME, SELF-CARE Condition: STABLE Referrals: RODNEY SAUER MD Patient Instructions: Acute Pancreatitis, Clear Liquid Diet, Nausea and Vomiting Additional Instructions: Please return for any new or increasing symptoms, or if you have any questions or concerns reviewed like to continue treatment here in the hospital. Please return for any increasing abdominal pain, vomiting inability to tolerate by mouth medications, fever greater than 102.2 despite treatment or if you have any questions or concerns. I would advise a use a liquid diet and advance as tolerated as instructions were given to. Please follow-up with your GI doctor as scheduled through your primary care doctor. Scripts Pantoprazole Sodium (PROTONIX) 40 Mg Tablet.dr 1 TAB PO DAILY, #30 TAB 5 Refills Prov: TEA KUMAR MD 11/18/16 Ondansetron (ZOFRAN ODT) 8 Mg Tab.rapdis 8 MG PO TID for 7 Days Prov: TEA KUMAR MD 11/18/16 Problem Qualifiers TEA KUMAR MD November 18, 2016 14:34
== END 2016-11-18 14:41 | disposition home or self-care (01) ==
LOC: ER 14:01
DX: K85.90 Acute pancreatitis without necrosis or infection, unspecified (principal); E11.9 Type 2 diabetes mellitus without complications; F12.10 Cannabis abuse, uncomplicated; Z72.0 Tobacco use
CPT/HCPCS: 99283